=== PATIENT | female | born 1975 | race Caucasian/White ===

== ENCOUNTER 2016-10-31 01:56 | Emergency (ER) | payer BC ==
--- NOTE | 2016-10-31 08:50 | DIAGNOSTIC IMAGING REPORT ---
PROCEDURE: US COMPLETE PELVIC W/TRANSVAG INDICATION: Pelvic pain TECHNIQUE: Transabdominal and endovaginal tavera scale and color Doppler sonographic images of the female pelvis were obtained. COMPARISON: CT abdomen/pelvis 10/31/2016 FINDINGS: Study limited by patient's body habitus and discomfort during examination. TRANSABDOMINAL SCANS: Uterus not well visualized. Normal kidneys. TRANSVAGINAL SCANS: The uterus measures 9.9 x 6 x 6 cm. 1.7 cm right mid posterior fibroid. There is an 8.6 x 7.5 x 6.2 cm complex left adnexal mass cephalad to the uterus with some wall thickening posteriorly. There is some vascular flow present. There is mild echogenic free fluid present. Right ovary not visualized. IMPRESSION: 1. 8.6 cm complex left adnexal mass cephalad to the uterus with mild echogenic free fluid. This suggests hemorrhagic cyst. Tubal ovarian abscess is not completely excluded. Correlate clinically 2. Fibroid 3. Results discussed with Dr. Spencer
--- NOTE | 2016-10-31 08:51 | DIAGNOSTIC IMAGING REPORT ---
PROCEDURE: CT ABD/PELVIS WITH CONTRAST CLINICAL INDICATION: ABDOMINAL PAIN, initial encounter TECHNIQUE: 125 ml of Isovue 300 were injected intravenously and axial images were obtained of the entire abdomen and pelvis with sagittal and coronal reformations. COMPARISON: None. FINDINGS: ABDOMEN: Lung bases are clear. Normal heart size. Cholecystectomy. Liver, pancreas, spleen, adrenal glands and kidneys are normal. Minor atherosclerosis. Nonspecific bowel gas pattern. PELVIS: 6 cm cystic left adnexal mass with wall enhancement and mild free fluid. There is a 2.7 cm right ovarian cyst. 2 cm exophytic left lateral uterine fibroid. Bladder is unremarkable. Appendix not visualized but no evidence of acute appendicitis. No suspicious osseous lesions. IMPRESSION: 1. 6 cm cystic left ovarian mass with mild free fluid. This may represent a hemorrhagic cyst or tubo-ovarian abscess. 2. 2.7 cm right ovarian cyst 3. Small amount of free fluid 4. Suspect 2 cm left lateral exophytic fibroid 5. Cholecystectomy 6. Preliminary results submitted by Dr. Maddox, [facility] radiology. All CT scans at this facility use dose modulation, iterative reconstruction, and/or weight-based dosing when appropriate to reduce radiation dose to as low as reasonably achievable.
--- NOTE | 2016-10-31 09:23 | ED NURSING NOTES ---
Clinical Report - Nurses Located Within [facility] [address] [place] [address] 10/31/2016 1:57 [id number] TRI[facility] Triage time 0205. Acuity: LEVEL 3. [place] COMA SCORE: [place] Coma Scale: 15- eyes open spontaneously (4); best verbal response- oriented x 4 (5); best motor response- obeys commands (6). --02:12 Janina Enriquez R.N. 02:05 10/31/16. BP: 168/106. HR: 118. RR: 20 (unlabored). O2 saturation: 99% on room air. Temp: 98.8 F (oral). Pain level now: 08/03. --02:12 Janina Enriquez R.N. Alert. SEPSIS SCREEN: Sepsis Screen. Negative (no infection suspected/documented). --03:12 Nicholas Ritchie R.N. 03:08 10/31/16. BP: 154/95. HR: 110. RR: 22. O2 saturation: 100% on room air. Temp: 98.7 F. Pain level now: 08/03. --03:12 Nicholas Ritchie R.N. Triage time late entry -0205. Chief Complaint: ABDOMINAL PAIN. late entry -02:05. --09:38 Morteza Thomas R.N. Weight: 99.7 kg stated. Height/Length: 63 inches Per Patient. BMI: 38.9. --02:05 Janina Enriquez R.N. Medications TraMADol HCl Oral. Xanax Oral. --02:09 Janina Enriquez R.N. TiZANidine HCl Oral (Tablet 2 mg) 2 tablets, 3x a day. --02:09 Janina Enriquez R.N. Medication/allergy information source: the patient. --02:12 Janina Enriquez R.N. Allergies Erythromycin. Penicillin. --02:09 Janina Enriquez R.N. History Arrived by private vehicle. Historian: patient. Accompanied by family. ( pt c/o abdominal pain, nausea and vomited x 1 since yesterday morning shortly after her period ended.). This started yesterday. Treatment DEVELOPMENT DISABILITY SPECIALIST: Took ibuprofen. PAST MEDICAL HX: Last normal menstrual period- Oct 26, 2016. SOCIAL HX: Light tobacco smoker (cigarette)- less than 1/2 a pack per day. No alcohol use or drug use. ABUSE ASSESSMENT: No report of abuse. FALL RISK ASSESSMENT: Fall risk assessment completed. No fall risk identified. NUTRITIONAL RISK ASSESSMENT: The nutritional risk assessment revealed no deficiencies. FUNCTIONAL ASSESSMENT: Functional assessment: no impairments noted. LEARNING NEEDS ASSESSMENT: The learning needs assessment revealed no barriers. SKIN INTEGRITY ASSESSMENT: Skin integrity risk assessment completed. No skin integrity risk identified. --02:12 Janina Enriquez R.N. Primary physician ([place]). --02:12 Janina Enriquez R.N. PROBLEMS: Fibromyalgia. Hypertension. Anxiety Reaction. --02:10 Janina Enriquez R.N. ADDITIONAL SURGERIES: Cholecystectomy. Tonsillectomy. --02:10 Janina Enriquez R.N. Interventions ID band on patient. To waiting room. --02:12 Janina Enriquez R.N. PHYSICAL ASSESSMENT 03:12. To room via wheelchair. Patient gowned. GENERAL / NEURO / PSYCH: Alert. Oriented X 4. HEENT: Mucous membranes are pink. RESPIRATORY: Respirations not labored. SKIN: Skin is warm and dry. --03:12 Nicholas Ritchie R.N. NURSING PROGRESS NOTES 02:59 Patient in restroom collecting urine sample. --03:00 Nicholas Ritchie R.N. 03:03. Patient ID band checked for patient name and birthdate: patient confirmed. Clean catch urine collected with return of yellow-colored cloudy urine; sample sent to lab for urinalysis and HCG. Specimen labeled in the presence of the patient. --03:08 Nicholas Ritchie R.N. 03:05. Head of bed elevated. Two patient identifiers checked. Call light placed in reach. Bed placed in lowest position. Brakes of bed on. Patient ready for evaluation- chart flagged. --03:08 Nicholas Ritchie R.N. 03:19 10/31/2016 Site #1 started via IV in the right antecubital space with an 20g angiocath, with aseptic technique and good blood return; one attempt. Blood drawn: rainbow set. Labeled in the presence of the patient and sent to the lab. Saline lock flushed with 10 mL saline. --03:26 Nicholas Ritchie R.N. 03:30 10/31/2016 Zofran (Ondansetron HCl) IVP 4 mg given over 2 minute(s) via site #1. Allergies verified and confirmed 5 rights. IV patency established. IV site checked: no pain, redness, or swelling. IV flushed thoroughly pre- and post-medication administration. --03:50 Nicholas Ritchie R.N. 04:00 10/31/2016 Dilaudid (HYDROmorphone HCl PF) IVP 1 mg given over 2 minute(s) via site #1. Allergies verified, confirmed 5 rights and sedative warning given to the patient and patient's family. IV patency established. IV site checked: no pain, redness, or swelling. IV flushed thoroughly pre- and post-medication administration. --04:02 Nicholas Ritchie R.N. 04:02 10/31/16. BP: 148/86. HR: 110. RR: 18. O2 saturation: 96% on room air. --04:03 Nicholas Ritchie R.N. 05:17. Patient transported to [place] by stretcher with tech. --05:22 Nicholas Ritchie R.N. 05:25. Patient returned from CT by stretcher with tech. --05:29 Nicholas Ritchie R.N. 06:01 10/31/2016 Zofran (Ondansetron HCl) IVP 4 mg given over 2 minute(s) via site #1. Allergies verified and confirmed 5 rights. IV patency established. IV site checked: no pain, redness, or swelling. IV flushed thoroughly pre- and post-medication administration. --06:05 Nicholas Ritchie R.N. 06:04 10/31/2016 Dilaudid (HYDROmorphone HCl PF) IVP 1 mg given over 2 minute(s) via site #1. Allergies verified, confirmed 5 rights and sedative warning given to the patient and patient's family. IV patency established. IV site checked: no pain, redness, or swelling. IV flushed thoroughly pre- and post-medication administration. --06:06 Nicholas Ritchie R.N. 07:13 10/31/16. BP: 116/74. HR: 104. RR: 16. O2 saturation: 95%. Pain level now: 03/03. --07:14 Nicholas Ritchie R.N. The patient is calm and resting quietly. SKIN: Skin color within normal limits. --07:14 Nicholas Ritchie R.N. 07:15. Care transferred and report given (Morteza DUMAS). --07:15 Nicholas Ritchie R.N. <<STRICKEN ENTRY-- 07:23 10/31/16. Care transferred and report received (from BLANKA Yoder). --07:23 Morteza Thomas R.N. --END STRIKE>> Correction --07:42 Morteza Thomas R.N. late entry -07:15. Care transferred and report received (from Nicholas Salcedo RN). --07:42 Morteza Thomas R.N. 07:30. ( US here at the bedside). --07:41 Morteza Thomas R.N. 08:46 10/31/2016 Dilaudid (HYDROmorphone HCl PF) IVP 1 mg given over 1 minute(s) via site #1. Allergies verified, confirmed 5 rights and sedative warning given to the patient. IV patency established. IV site checked: no pain, redness, or swelling. IV flushed thoroughly pre- and post-medication administration. IVP given by RN. --08:51 Morteza Thomas R.N. 08:48 10/31/2016 Ativan (LORazepam) IVP 0.5 mg given over 1 minute(s) via site #1. Allergies verified, confirmed 5 rights and sedative warning given to the patient. IV patency established. IV site checked: no pain, redness, or swelling. IV flushed thoroughly pre- and post-medication administration. IVP given by RN. --08:52 Morteza Thomas R.N. 08:55 10/31/16. BP: 124/71. HR: 101. RR: 20. O2 saturation: 90% on room air. Pain level now: 07/04. --08:58 Morteza Thomas R.N. 08:58 10/31/16. HR: 98. RR: 20. O2 saturation: 99% on nasal cannula at 2 liters/minute. Pain level now: 06/03. --08:58 Morteza Thomas R.N. 09:00 10/31/2016 Dilaudid IVP Response: no adverse reaction symptoms have improved. --18:45 Morteza Thomas R.N. 09:00 10/31/2016 Ativan IVP Response: no adverse reaction symptoms have improved. --18:46 Morteza Thomas R.N. 09:00 10/31/16. Oxygen administered by nasal cannula at 2 liters. Pulse oximeter and NIBP monitor placed on patient; monitor alarms on. Reassurance given. Call light placed in reach. Side rails up x 2. Bed placed in lowest position. Brakes of bed on. ( Extra pillow provided.). Patient waiting for radiology results. --09:00 Morteza Thomas R.N. DISPOSITION / DISCHARGE 09:30 10/31/2016 Site #1 removed upon discharge. Bandage applied. --09:30 Morteza Thomas R.N. 09:36 10/31/16. Departure time: 0930. Condition at departure: unchanged and stable. No learning barriers present. Discharge instructions provided and reviewed with the patient and spouse. Reviewed warnings. Reviewed medication(s). Reviewed referrals. Work note given. Follow up contact number Gail Gerber DO [phone]. Patient and spouse verbalized understanding. Written instructions provided in Kyrgyz. The patient was discharged by the physician. She was discharged home and accompanied by spouse. She left the Emergency Department ambulatory and via private vehicle. Spouse driving. --09:36 Morteza Thomas R.N. 09:15 10/31/16. BP: 106/68. HR: 98. RR: 20. O2 saturation: 98% on room air. Temp: 98.7 F. Pain level now: 04/03. --09:36 Morteza Thomas R.N. Locked/Released at 10/31/2016 18:47 by Morteza Thomas R.N.
--- NOTE | 2016-10-31 09:23 | ED ORDER SUMMARY ---
..... Patient: DONALD LANDON OrderSheet [facility] VisitID: [id number] [place] [address] 41y, F Registration Date/Time: 10/31/2016 ORDER SHEET Weight: 99.7 kg (stated) Allergies: Erythromycin, Penicillin GENERAL ORDERS: CBC w Diff Urgent (03:25 10/31/2016 JQuivey R.N. per protocol) (Ack 3:27 CHagerty ER Yarn Texturing Machine Operator) (3:27 CHagerty ER Yarn Texturing Machine Operator) CMP Urgent (03:25 10/31/2016 JQuivey R.N. per protocol) (Ack 3:27 CHagerty ER Yarn Texturing Machine Operator) (3:27 CHagerty ER Yarn Texturing Machine Operator) Amylase Urgent (03:10/31/2016 JQuivey R.N. per protocol) (Ack 3:27 CHagerty ER Yarn Texturing Machine Operator) (3:27 CHagerty ER Yarn Texturing Machine Operator) Lipase Urgent (03:25 10/31/2016 JQuivey R.N. per protocol) (Ack 3:27 CHagerty ER Yarn Texturing Machine Operator) (3:27 CHagerty ER Yarn Texturing Machine Operator) Urine Urgent (03:25 10/31/2016 JQuivey R.N. per protocol) (Ack 3:27 CHagerty ER Yarn Texturing Machine Operator) (3:27 CHagerty ER Yarn Texturing Machine Operator) UA-Culture if indicated Urgent (03:25 10/31/2016 JQuivey R.N. per protocol) (Ack 3:27 CHagerty ER Yarn Texturing Machine Operator) (3:27 CHagerty ER Yarn Texturing Machine Operator) Urine Drug Screen Urgent (03:28 10/31/2016 Arnie NEVAREZ) (Ack 3:44 CHagerty ER Yarn Texturing Machine Operator) (3:51 CHagerty ER Yarn Texturing Machine Operator) CT Abd/Pel w Cont (No) (N/A) Urgent (03:34 10/31/2016 Arnie NEVAREZ) (Ack 3:44 CHagerty ER Yarn Texturing Machine Operator) (5:49 CHagerty ER Yarn Texturing Machine Operator) US Pelvic Complete w Transvag Urgent (06:38 10/31/2016 Arnie NEVAREZ) (Ack 6:42 CHagerty ER Yarn Texturing Machine Operator) (18:44 JSimbeck R.N.) MEDICATION ORDERS: IV FLUIDS: IV Saline Lock (03:25 10/31/2016 JQuivey R.N. per protocol) (3:26 JQuivey R.N.) Dilaudid IV 1 mg (NOW) (03:33 10/31/2016 Arnie NEVAREZ) (Ack 3:50 JQuivey R.N.) (4:02 JQuivey R.N.) Zofran IV 4 mg (NOW) (03:34 10/31/2016 Arnie NEVAREZ) (3:50 JQuivey R.N.) Zofran IV 4 mg (NOW) (06:00 10/31/2016 JQuivey R.N. verbal order read back to Arnie NEVAREZ) (Ack 6:00 JQuivey R.N.) (6:05 JQuivey R.N.) Dilaudid IV 1 mg (NOW) (06:00 10/31/2016 LilyQuivey R.N. verbal order read back to Arnie NEVAREZ) (Ack 6:00 JQuivey R.N.) (6:06 JQuivey R.N.) Dilaudid IV 1 mg (NOW) (08:14 10/31/2016 Arnie NEVAREZ) (8:51 GORDONimbeck R.N.) Ativan IV 0.5 mg (NOW) (08:14 10/31/2016 Arnie NEVAREZ) (8:52 JSimbeck R.N.) ORDER SHEET NOTES: [Electronically signed by Morteza Thomas R.N. (18:47 10/31/2016)] [Electronically signed by Shayne Spencer MD (22:39 11/01/2016)] [Electronically locked/signed by Morteza Thomas R.N. (18:47 10/31/2016)]
--- NOTE | 2016-10-31 09:23 | ED CLINICAL REPORT ---
Clinical Report - Physicians/Mid Levels [facility] [address] [place] [address] 10/31/2016 1:57 Patient: DONALD LANDON Time Seen: 03:28 Oct 31 2016. Arrived- By private vehicle. Historian- patient. CPT: ER phys charges level 4 (#[id number]). HISTORY OF PRESENT ILLNESS Chief Complaint: ABDOMINAL PAIN. At its maximum, severity described as severe. When seen in the E.D., severity described as severe. Modifying factors- worsened by movement. Not relieved by anything. It is described as "pain". It is described as located in the right abdomen, right pelvis and left abdomen, in the lower abdomen and in the pelvic area. This started yesterday pt c/o abdominal pain, nausea and vomited x 1 since yesterday morning shortly after her period ended.). and is still present. It was abrupt in onset and has been constant. The patient has had nausea and vomiting. No diarrhea. Similar symptoms previously: None. Recent medical care: Not recently seen/assessed. REVIEW OF SYSTEMS No constipation, black stools, hematemesis, difficulty with urination or pain with urination. No urinary frequency, bloody stools, fever, sore throat or chest pain. No difficulty breathing, cough, joint pain, skin rash or back pain. All systems otherwise negative, except as recorded above. PAST HISTORY Fibromyalgia. Hypertension. Anxiety Reaction. --02:10 Janina Enriquez R.N. ADDITIONAL SURGERIES: Cholecystectomy. Tonsillectomy. Uterine ablation. Medications: TiZANidine HCl Oral (Tablet 2 mg) 2 tablets, 3x a day. TraMADol HCl Oral. Xanax Oral. Allergies: Erythromycin. Penicillin. SOCIAL HISTORY Heavy tobacco smoker (cigarette)- less than 1 pack per day. No alcohol use or drug use. ADDITIONAL NOTES The nursing notes have been reviewed. PHYSICAL EXAM Vital Signs: 10/31/2016 02:05 BP: 168/106. HR: 118. RR: 20. O2 saturation: 99%. Temp: 98.8 F. Pain level now: 08/03. Appearance: Alert. Oriented X3. Patient in moderate distress. Eyes: Eyes normal inspection. ENT: Pharynx normal. Neck: Normal inspection. CVS: Normal heart rate and rhythm. Heart sounds normal. Pulses normal. Respiratory: No respiratory distress. Breath sounds normal. Chest nontender. Abdomen: Soft. Moderate tenderness in the right lower quadrant, suprapubic area and lower abdomen. Bowel sounds normal. Back: Normal inspection. No CVA tenderness. Skin: Skin warm. Normal skin color. No rash. Extremities: Extremities exhibit normal ROM. No calf tenderness. No lower extremity edema. Neuro: Oriented X 3. No motor deficit. No sensory deficit. Reflexes normal. LABS, X-RAYS, AND EKG Abdominal CT: A cyst in the right ovary is present. There is free fluid- hemorrhagic. Abdominal CT performed with IV contrast. The study was independently viewed by me, interpreted by the radiologist and discussed with the radiologist. Pelvic Sonogram: 8 cm ruptured , hemorrhagic cyst. Good blood flow, Less likely abscess. The study was independently viewed by me, interpreted by the radiologist and discussed with the radiologist. Laboratory Tests: UA-Culture if indicated: (GUS: 10/31/2016 03:03) ( MsVertex Energycvd 10/31/2016 03:56) Final results Test Result Flag Units (Reference) URINE COLOR YELLOW URINE APPEARANCE CLEAR URINE GLUCOSE NEGATIVE (NEGATIVE) URINE BILIRUBIN NEGATIVE (NEGATIVE) URINE KETONE TRACE (NEGATIVE) URINE SPECIFIC GRAVITY 1.020 (1.010-1.030) URINE PH 6.5 (5.0-8.0) URINE PROTEIN 1+ (NEGATIVE) URINE UROBILINOGEN 1.0 EU/dL (0.2-1.0) URINE NITRITE POSITIVE (NEGATIVE) URINE BLOOD 3+ (NEGATIVE) URINE LEUK ESTERASE NEGATIVE (NEGATIVE) URINE RBC 1-3 rbc/hpf (0-1) URINE WBC 0-1 wbc/hpf (0-1) URINE EPITHELIAL CELLS 1-3 EPI/hpf (0-5) URINE BACTERIA MANY (4+) (NONE SEEN) URINE COMMENT CULTURE INDICATED URINE CULTURES ARE SET-UP BASED ON THE FOLLOWING CRITERIA:POSITIVE NITRITEPOSITIVE LEUKOCYTE ESTERASEGREATER THAN 10 WHITE BLOOD CELLSMODERATE (2+) OR GREATER BACTERIA Urine: (GUS: 10/31/2016 03:03) ( MsgRcvd 10/31/2016 03:38) Final results Test Result Flag Units (Reference) URINE NEGATIVE CBC w Diff: (GUS: 10/31/2016 03:18) ( MsgRcvd 10/31/2016 03:36) Final results Test Result Flag Units (Reference) WHITE BLOOD COUNT 24.2 H K/uL (4.5-11.5) RED BLOOD COUNT 4.70 M/uL (4.00-5.20) HEMOGLOBIN 14.3 gm/dL (12.0-16.0) HEMATOCRIT 43.3 % (36.0-46.0) MEAN CELL VOLUME 92 fL (80-100) MEAN CORPUSCULAR HGB 30 pg (26-34) MEAN CORPUSCULAR HGB CONC 33 g/dL (31-37) RED CELL DISTRIBUTION WIDTH 13.5 % (11.6-14.8) PLATELET COUNT 344 K/uL (150-400) NEUTROPHIL % 93.0 H % (50-75) LYMPH % 4.7 L % (25-40) MONO % 2.3 L % (3-14) EOSINOPHIL % 0 % (0-4) BASOPHIL % 0 % (0-2) Urine Drug Screen: (GUS: 10/31/2016 03:03) ( MsgRcvd 10/31/2016 03:46) Final results Test Result Flag Units (Reference) AMPHETAMINE/METHAMPHETAMINE NEGATIVE (NEGATIVE) BARBITURATE NEGATIVE (NEGATIVE) BENZODIAZEPINE POSITIVE H (NEGATIVE) CANNABINOID POSITIVE H (NEGATIVE) COCAINE NEGATIVE (NEGATIVE) ECSTASY NEGATIVE (NEGATIVE) METHADONE NEGATIVE (NEGATIVE) OPIATE POSITIVE H (NEGATIVE) The urine drug screen is a qualitative screening test fordrug overdose and abuse. All screen results should beconsidered as presumptive.Drugs screened for are as follows:BenzodiazepinesCocaineAmphetamines/MetamphetaminesTHC (Tetrahydrocannabinol)OpiatesBarbituratesEcstasyMethadonePositive results are unconfirmed. For confirmation, notifythe lab for the specimen to be sent to the reference lab.All confirmations must be performed by a differentmethodology.The ingestion of natural herbal and plant productscontaining Ephedra/Ephedra metabolites can produce in urineone or more substances capable of cross reacting withamphetamine/methamphetamine immunoassays. These testsprovide a preliminary result only. A more specificalternative chemical method must be used to obtain aconfirmed analytical result. CMP: (GUS: 10/31/2016 03:18) ( MsgRcvd 10/31/2016 03:42) Final results Test Result Flag Units (Reference) GLUCOSE 112 H mg/dL (70-110) BUN 14 mg/dL (7-18) CREATININE 0.7 mg/dL (0.6-1.3) Estimated GFR >60 mL/min Estimated GFR- >60 mL/min Note: Persistent reduction over 3 months in eGFR<60 mL/min/1.73 m2 defines CKD. Patients with eGFR values>=60 mL/min/1.73 m2 may also have CKD if evidence ofpersistent proteinuria. Additional information may be foundat www.kidney.org. SODIUM 134 L mmol/L (136-145) POTASSIUM 3.6 mmol/L (3.5-5.1) CHLORIDE 100 mmol/L (98-107) CARBON DIOXIDE 27 mmol/L (21-32) CALCIUM 8.5 mg/dL (8.5-10.1) TOTAL PROTEIN 7.5 g/dL (6.4-8.2) ALBUMIN 3.7 g/dL (3.3-5.0) BILIRUBIN, TOTAL 0.7 mg/dL (0.0-1.0) ALKALINE PHOSPHATASE 95 U/L (46-116) AST (SGOT) 54 H U/L (15-37) ALT (SGPT) 41 U/L (12-78) LIPASE 95 U/L (73-393) AMYLASE 31 U/L (25-115) . PROGRESS AND PROCEDURES Course of Care: Heplock Dilaudid 1 mg IV times 3 Zofran 4 mg IV times 2 Ativan 0.5mg IV Patient is stable. Symptoms much better. Discussed case with on-call health care provider, (Buzz , who will get her in on Wednesday for re-check.). Reviewed test results. Agreed upon treatment plan. Health care provider will see patient in office. Patient/family counseled. Disposition: Discharged. CLINICAL IMPRESSION Acute right lower quadrant abdominal pain. Single ruptured right ovarian cyst (Hemorrhagic). No simple ovarian cyst, follicular ovarian cyst, corpus luteum ovarian cyst, torsion of ovary or polycystic ovarian disease. Bacteruria. INSTRUCTIONS No strenuous activity. Rest. Do not work for two days until released. Drink plenty of fluids. Warnings: Further evaluation is necessary. GENERAL WARNINGS: Return or contact your physician immediately if your condition worsens or changes unexpectedly, if not improving as expected, or if other problems arise. Your Current Medications: CONTINUE TAKING THE FOLLOWING MEDICATIONS: TiZANidine HCl Oral : Tablet 2 mg, 2 tablets 3x a day. TraMADol HCl Oral. Xanax Oral. Prescription Medications: Zofran (orally disintegrating tablets) 4 mg: take 1 orally every 4 hours as needed for nausea. Dispense fifteen (15). No refill. Substitution is permissible. Macrobid 100 mg: Take 1 capsule orally every 12 hours for 7 days. No refills. Substitution is permissible. Oxycodone/APAP 5 mg/325 mg: take 1-2 tablets orally every 4 hours as needed for pain. Dispense twenty (20). No refill. Understanding of the discharge instructions verbalized by patient. Discharge instructions reviewed with and understanding was verbalized by spouse. Follow-up with: Gail Gerber DO, bioassayist, , [facility], [address] [place] [address], Critical access hospital Follow up Wednesday in two days. Call for the next available appointment. (Electronically signed by Shayne Spencer MD 11/01/2016 22:39)
--- NOTE | 2016-10-31 09:23 | ED CLINICAL REPORT ---
Clinical Report - Physicians/Mid Levels [facility] [address] [place] [address] 10/31/2016 1:57 Patient: DONALD LANDON Time Seen: 03:28 Oct 31 2016. Arrived- By private vehicle. Historian- patient. CPT: ER phys charges level 4 (#[id number]). HISTORY OF PRESENT ILLNESS Chief Complaint: ABDOMINAL PAIN. At its maximum, severity described as severe. When seen in the E.D., severity described as severe. Modifying factors- worsened by movement. Not relieved by anything. It is described as "pain". It is described as located in the right abdomen, right pelvis and left abdomen, in the lower abdomen and in the pelvic area. This started yesterday pt c/o abdominal pain, nausea and vomited x 1 since yesterday morning shortly after her period ended.). and is still present. It was abrupt in onset and has been constant. The patient has had nausea and vomiting. No diarrhea. Similar symptoms previously: None. Recent medical care: Not recently seen/assessed. REVIEW OF SYSTEMS No constipation, black stools, hematemesis, difficulty with urination or pain with urination. No urinary frequency, bloody stools, fever, sore throat or chest pain. No difficulty breathing, cough, joint pain, skin rash or back pain. All systems otherwise negative, except as recorded above. PAST HISTORY Fibromyalgia. Hypertension. Anxiety Reaction. --02:10 aJnina Enriquez R.N. ADDITIONAL SURGERIES: Cholecystectomy. Tonsillectomy. Uterine ablation. Medications: TiZANidine HCl Oral (Tablet 2 mg) 2 tablets, 3x a day. TraMADol HCl Oral. Xanax Oral. Allergies: Erythromycin. Penicillin. SOCIAL HISTORY Heavy tobacco smoker (cigarette)- less than 1 pack per day. No alcohol use or drug use. ADDITIONAL NOTES The nursing notes have been reviewed. PHYSICAL EXAM Vital Signs: 10/31/2016 02:05 BP: 168/106. HR: 118. RR: 20. O2 saturation: 99%. Temp: 98.8 F. Pain level now: 08/03. Appearance: Alert. Oriented X3. Patient in moderate distress. Eyes: Eyes normal inspection. ENT: Pharynx normal. Neck: Normal inspection. CVS: Normal heart rate and rhythm. Heart sounds normal. Pulses normal. Respiratory: No respiratory distress. Breath sounds normal. Chest nontender. Abdomen: Soft. Moderate tenderness in the right lower quadrant, suprapubic area and lower abdomen. Bowel sounds normal. Back: Normal inspection. No CVA tenderness. Skin: Skin warm. Normal skin color. No rash. Extremities: Extremities exhibit normal ROM. No calf tenderness. No lower extremity edema. Neuro: Oriented X 3. No motor deficit. No sensory deficit. Reflexes normal. LABS, X-RAYS, AND EKG Abdominal CT: A cyst in the right ovary is present. There is free fluid- hemorrhagic. Abdominal CT performed with IV contrast. The study was independently viewed by me, interpreted by the radiologist and discussed with the radiologist. Pelvic Sonogram: 8 cm ruptured , hemorrhagic cyst. Good blood flow, Less likely abscess. The study was independently viewed by me, interpreted by the radiologist and discussed with the radiologist. Laboratory Tests: UA-Culture if indicated: (GUS: 10/31/2016 03:03) ( MsAmeriWorkscvd 10/31/2016 03:56) Final results Test Result Flag Units (Reference) URINE COLOR YELLOW URINE APPEARANCE CLEAR URINE GLUCOSE NEGATIVE (NEGATIVE) URINE BILIRUBIN NEGATIVE (NEGATIVE) URINE KETONE TRACE (NEGATIVE) URINE SPECIFIC GRAVITY 1.020 (1.010-1.030) URINE PH 6.5 (5.0-8.0) URINE PROTEIN 1+ (NEGATIVE) URINE UROBILINOGEN 1.0 EU/dL (0.2-1.0) URINE NITRITE POSITIVE (NEGATIVE) URINE BLOOD 3+ (NEGATIVE) URINE LEUK ESTERASE NEGATIVE (NEGATIVE) URINE RBC 1-3 rbc/hpf (0-1) URINE WBC 0-1 wbc/hpf (0-1) URINE EPITHELIAL CELLS 1-3 EPI/hpf (0-5) URINE BACTERIA MANY (4+) (NONE SEEN) URINE COMMENT CULTURE INDICATED URINE CULTURES ARE SET-UP BASED ON THE FOLLOWING CRITERIA:POSITIVE NITRITEPOSITIVE LEUKOCYTE ESTERASEGREATER THAN 10 WHITE BLOOD CELLSMODERATE (2+) OR GREATER BACTERIA Urine: (GUS: 10/31/2016 03:03) ( MsgRcvd 10/31/2016 03:38) Final results Test Result Flag Units (Reference) URINE NEGATIVE CBC w Diff: (GUS: 10/31/2016 03:18) ( MsgRcvd 10/31/2016 03:36) Final results Test Result Flag Units (Reference) WHITE BLOOD COUNT 24.2 H K/uL (4.5-11.5) RED BLOOD COUNT 4.70 M/uL (4.00-5.20) HEMOGLOBIN 14.3 gm/dL (12.0-16.0) HEMATOCRIT 43.3 % (36.0-46.0) MEAN CELL VOLUME 92 fL (80-100) MEAN CORPUSCULAR HGB 30 pg (26-34) MEAN CORPUSCULAR HGB CONC 33 g/dL (31-37) RED CELL DISTRIBUTION WIDTH 13.5 % (11.6-14.8) PLATELET COUNT 344 K/uL (150-400) NEUTROPHIL % 93.0 H % (50-75) LYMPH % 4.7 L % (25-40) MONO % 2.3 L % (3-14) EOSINOPHIL % 0 % (0-4) BASOPHIL % 0 % (0-2) Urine Drug Screen: (GUS: 10/31/2016 03:03) ( MsgRcvd 10/31/2016 03:46) Final results Test Result Flag Units (Reference) AMPHETAMINE/METHAMPHETAMINE NEGATIVE (NEGATIVE) BARBITURATE NEGATIVE (NEGATIVE) BENZODIAZEPINE POSITIVE H (NEGATIVE) CANNABINOID POSITIVE H (NEGATIVE) COCAINE NEGATIVE (NEGATIVE) ECSTASY NEGATIVE (NEGATIVE) METHADONE NEGATIVE (NEGATIVE) OPIATE POSITIVE H (NEGATIVE) The urine drug screen is a qualitative screening test fordrug overdose and abuse. All screen results should beconsidered as presumptive.Drugs screened for are as follows:BenzodiazepinesCocaineAmphetamines/MetamphetaminesTHC (Tetrahydrocannabinol)OpiatesBarbituratesEcstasyMethadonePositive results are unconfirmed. For confirmation, notifythe lab for the specimen to be sent to the reference lab.All confirmations must be performed by a differentmethodology.The ingestion of natural herbal and plant productscontaining Ephedra/Ephedra metabolites can produce in urineone or more substances capable of cross reacting withamphetamine/methamphetamine immunoassays. These testsprovide a preliminary result only. A more specificalternative chemical method must be used to obtain aconfirmed analytical result. CMP: (GUS: 10/31/2016 03:18) ( MsgRcvd 10/31/2016 03:42) Final results Test Result Flag Units (Reference) GLUCOSE 112 H mg/dL (70-110) BUN 14 mg/dL (7-18) CREATININE 0.7 mg/dL (0.6-1.3) Estimated GFR >60 mL/min Estimated GFR- >60 mL/min Note: Persistent reduction over 3 months in eGFR<60 mL/min/1.73 m2 defines CKD. Patients with eGFR values>=60 mL/min/1.73 m2 may also have CKD if evidence ofpersistent proteinuria. Additional information may be foundat www.kidney.org. SODIUM 134 L mmol/L (136-145) POTASSIUM 3.6 mmol/L (3.5-5.1) CHLORIDE 100 mmol/L (98-107) CARBON DIOXIDE 27 mmol/L (21-32) CALCIUM 8.5 mg/dL (8.5-10.1) TOTAL PROTEIN 7.5 g/dL (6.4-8.2) ALBUMIN 3.7 g/dL (3.3-5.0) BILIRUBIN, TOTAL 0.7 mg/dL (0.0-1.0) ALKALINE PHOSPHATASE 95 U/L (46-116) AST (SGOT) 54 H U/L (15-37) ALT (SGPT) 41 U/L (12-78) LIPASE 95 U/L (73-393) AMYLASE 31 U/L (25-115) . PROGRESS AND PROCEDURES Course of Care: Heplock Dilaudid 1 mg IV times 3 Zofran 4 mg IV times 2 Ativan 0.5mg IV Patient is stable. Symptoms much better. Discussed case with on-call health care provider, (Buzz , who will get her in on Wednesday for re-check.). Reviewed test results. Agreed upon treatment plan. Health care provider will see patient in office. Patient/family counseled. Disposition: Discharged. CLINICAL IMPRESSION Acute right lower quadrant abdominal pain. Single ruptured right ovarian cyst (Hemorrhagic). No simple ovarian cyst, follicular ovarian cyst, corpus luteum ovarian cyst, torsion of ovary or polycystic ovarian disease. Bacteruria. INSTRUCTIONS No strenuous activity. Rest. Do not work for two days until released. Drink plenty of fluids. Warnings: Further evaluation is necessary. GENERAL WARNINGS: Return or contact your physician immediately if your condition worsens or changes unexpectedly, if not improving as expected, or if other problems arise. Your Current Medications: CONTINUE TAKING THE FOLLOWING MEDICATIONS: TiZANidine HCl Oral : Tablet 2 mg, 2 tablets 3x a day. TraMADol HCl Oral. Xanax Oral. Prescription Medications: Zofran (orally disintegrating tablets) 4 mg: take 1 orally every 4 hours as needed for nausea. Dispense fifteen (15). No refill. Substitution is permissible. Macrobid 100 mg: Take 1 capsule orally every 12 hours for 7 days. No refills. Substitution is permissible. Oxycodone/APAP 5 mg/325 mg: take 1-2 tablets orally every 4 hours as needed for pain. Dispense twenty (20). No refill. Understanding of the discharge instructions verbalized by patient. Discharge instructions reviewed with and understanding was verbalized by spouse. Follow-up with: Gail Gerber DO, machine repairer maintenance, , [facility], [address] [place] [address], [facility] Follow up Wednesday in two days. Call for the next available appointment. (Electronically signed by Shayne Spencer MD 11/01/2016 22:39)
--- NOTE | 2016-10-31 09:23 | ED ORDER SUMMARY ---
..... Patient: DONALD LANDON OrderSheet [facility] VisitID: [id number] [place] [address] 41y, F Registration Date/Time: 10/31/2016 ORDER SHEET Weight: 99.7 kg (stated) Allergies: Erythromycin, Penicillin GENERAL ORDERS: CBC w Diff Urgent (03:25 10/31/2016 JQuivey R.N. per protocol) (Ack 3:27 CHagerty ER [employer] Instrument Repairer) (3:27 CHagerty ER [employer] Instrument Repairer) CMP Urgent (03:25 10/31/2016 JQuivey R.N. per protocol) (Ack 3:27 CHagerty ER [employer] Instrument Repairer) (3:27 CHagerty ER [employer] Instrument Repairer) Amylase Urgent (03:10/31/2016 JQuivey R.N. per protocol) (Ack 3:27 CHagerty ER [employer] Instrument Repairer) (3:27 CHagerty ER [employer] Instrument Repairer) Lipase Urgent (03:25 10/31/2016 JQuivey R.N. per protocol) (Ack 3:27 CHagerty ER [employer] Instrument Repairer) (3:27 CHagerty ER [employer] Instrument Repairer) Urine Urgent (03:25 10/31/2016 JQuivey R.N. per protocol) (Ack 3:27 CHagerty ER [employer] Instrument Repairer) (3:27 CHagerty ER [employer] Instrument Repairer) UA-Culture if indicated Urgent (03:25 10/31/2016 JQuivey R.N. per protocol) (Ack 3:27 CHagerty ER [employer] Instrument Repairer) (3:27 CHagerty ER [employer] Instrument Repairer) Urine Drug Screen Urgent (03:28 10/31/2016 Arnie NEVAREZ) (Ack 3:44 CHagerty ER [employer] Instrument Repairer) (3:51 CHagerty ER [employer] Instrument Repairer) CT Abd/Pel w Cont (No) (N/A) Urgent (03:34 10/31/2016 Arnie NEVAREZ) (Ack 3:44 CHagerty ER [employer] Instrument Repairer) (5:49 CHagerty ER [employer] Instrument Repairer) US Pelvic Complete w Transvag Urgent (06:38 10/31/2016 Arnie NEVAREZ) (Ack 6:42 CHagerty ER [employer] Instrument Repairer) (18:44 JSimbeck R.N.) MEDICATION ORDERS: IV FLUIDS: IV Saline Lock (03:25 10/31/2016 JQuivey R.N. per protocol) (3:26 JQuivey R.N.) Dilaudid IV 1 mg (NOW) (03:33 10/31/2016 Arnie NEVAREZ) (Ack 3:50 JQuivey R.N.) (4:02 JQuivey R.N.) Zofran IV 4 mg (NOW) (03:34 10/31/2016 Arnie NEVAREZ) (3:50 JQuivey R.N.) Zofran IV 4 mg (NOW) (06:00 10/31/2016 JQuivey R.N. verbal order read back to Arnie NEVAREZ) (Ack 6:00 JQuivey R.N.) (6:05 JQuivey R.N.) Dilaudid IV 1 mg (NOW) (06:00 10/31/2016 LilyQuivey R.N. verbal order read back to Arnie NEVAREZ) (Ack 6:00 JQuivey R.N.) (6:06 JQuivey R.N.) Dilaudid IV 1 mg (NOW) (08:14 10/31/2016 Arnie NEVAREZ) (8:51 GORDONimbeck R.N.) Ativan IV 0.5 mg (NOW) (08:14 10/31/2016 Arnie NEVAREZ) (8:52 JSimbeck R.N.) ORDER SHEET NOTES: [Electronically signed by Morteza Thomas R.N. (18:47 10/31/2016)] [Electronically signed by Shayne Spencer MD (22:39 11/01/2016)] [Electronically locked/signed by Morteza Thomas R.N. (18:47 10/31/2016)]
--- NOTE | 2016-11-01 22:40 | ED MED RECONCILIATION SUMMARY ---
Patient: DONALD LANDON Medication Reconciliation Report [facility] VisitID: [id number] [address] [place] [address] 41y, F Registration Date/Time: 10/31/2016 Weight: 99.7 kg Height/Length: 63 in. BMI: 38.9 ALLERGIES: Erythromycin, Penicillin The patient's Home Medications are listed below: CONTINUE TAKING THE FOLLOWING MEDICATIONS: TiZANidine HCl Oral (2 mg) 2 tablets, 3x a day TraMADol HCl Oral Xanax Oral The source(s) of the original Home Medication information: patient The following Medications were given to the patient in the Emergency Department: Zofran [IVP] IVP 4 mg, administered: 10/31/2016 3:30:00 AM Dilaudid [IVP] IVP 1 mg, administered: 10/31/2016 4:00:00 AM Zofran [IVP] IVP 4 mg, administered: 10/31/2016 6:01:00 AM Dilaudid [IVP] IVP 1 mg, administered: 10/31/2016 6:04:00 AM Dilaudid [IVP] IVP 1 mg, administered: 10/31/2016 8:46:00 AM Ativan [IVP] IVP 0.5 mg, administered: 10/31/2016 8:48:00 AM The following Medications were prescribed to the patient: Zofran (orally disintegrating tablets) 4 mg: take 1 orally every 4 hours as needed for nausea. Dispense fifteen (15). No refill. Substitution is permissible. -- Shayne Spencer MD Macrobid 100 mg: Take 1 capsule orally every 12 hours for 7 days. No refills. Substitution is permissible. -- Shayne Spencer MD Oxycodone/APAP 5 mg/325 mg: take 1-2 tablets orally every 4 hours as needed for pain. Dispense twenty (20). No refill. -- Shayne Spencer MD
--- NOTE | 2016-11-01 22:40 | ED DISCHARGE INSTRUCTIONS ---
Patient: DONALD LANDON General Instructions [facility] VisitID: [id number] [place] [address] 41y, F Registration Date/Time: 10/31/2016 Acute right lower quadrant abdominal pain. Single ruptured right ovarian cyst (Hemorrhagic). No simple ovarian cyst, follicular ovarian cyst, corpus luteum ovarian cyst, torsion of ovary or polycystic ovarian disease. Bacteruria. INSTRUCTIONS No strenuous activity. Rest. Do not work for two days until released. Drink plenty of fluids. Warnings: Further evaluation is necessary. GENERAL WARNINGS: Return or contact your physician immediately if your condition worsens or changes unexpectedly, if not improving as expected, or if other problems arise. Your Current Medications: CONTINUE TAKING THE FOLLOWING MEDICATIONS: TiZANidine HCl Oral : Tablet 2 mg, 2 tablets 3x a day. TraMADol HCl Oral. Xanax Oral. Prescription Medications: Zofran (orally disintegrating tablets) 4 mg: take 1 orally every 4 hours as needed for nausea. Dispense fifteen (15). No refill. Substitution is permissible. Macrobid 100 mg: Take 1 capsule orally every 12 hours for 7 days. No refills. Substitution is permissible. Oxycodone/APAP 5 mg/325 mg: take 1-2 tablets orally every 4 hours as needed for pain. Dispense twenty (20). No refill. Understanding of the discharge instructions verbalized by patient. Discharge instructions reviewed with and understanding was verbalized by spouse. Follow-up with: Gail Gerber DO, tire center manager, , [facility], [address] [place] [address] Follow up Wednesday in two days. Call for the next available appointment. ADDITIONAL INFORMATION Ovarian Cyst The ovary is a small organ located on each side of the uterus. During each menstrual cycle a tiny egg sac forms in the ovary. If the egg is released but does not occur, this sac usually dissolves. Sometimes, the sac may fill with fluid. It then enlarges into a painful cyst. Usually the cyst will rupture or shrink on its own. In either case, the pain gradually goes away over the next 1-3 days. If the cyst does not shrink or rupture, it may cause continued pain. Home Care: Rest in bed and avoid heavy exertion until you are feeling better. Heat to the lower abdomen usually helps (heating pad or hot packs -- a small towel soaked in hot water). You may use acetaminophen (Tylenol) or ibuprofen (Motrin, Advil) to control pain, unless another pain medicine was prescribed. [NOTE: If you have chronic liver or kidney disease or ever had a stomach ulcer or GI bleeding, talk with your doctor before using these medicines.] Follow Up: See your doctor within the next 2-3 days if your pain doesnt improve. Otherwise, follow up with your doctor after your next period or as directed by our staff. Get Prompt Medical Attention if any of the following occur: Pain worsens or fails to respond to the above measures Fever of 100.4F (38C) or higher, or as directed by your healthcare provider Heavy vaginal bleeding (soaking one pad an hour for three hours) You feel weak or dizzy Fainting Passage of a pink or tavera tissue with menstrual bleeding Ondansetron Oral disintegrating tablet What is this medicine? ONDANSETRON (on RICH se elvis) is used to treat nausea and vomiting caused by chemotherapy. It is also used to prevent or treat nausea and vomiting after surgery. How should I use this medicine? These tablets are made to dissolve in the mouth. Do not try to push the tablet through the foil backing. With dry hands, peel away the foil backing and gently remove the tablet. Place the tablet in the mouth and allow it to dissolve, then swallow. While you may take these tablets with water, it is not necessary to do so. Talk to your mine technician regarding the use of this medicine in children. Special care may be needed. What side effects may I notice from receiving this medicine? Side effects that you should report to your doctor or health critical care nurse as soon as possible: allergic reactions like skin rash, itching or hives, swelling of the face, lips, or tongue breathing problems dizziness fast or irregular heartbeat feeling faint or lightheaded, falls fever and chills swelling of the hands and feet tightness in the chest Side effects that usually do not require medical attention (report to your doctor or health critical care nurse if they continue or are bothersome): constipation or diarrhea headache What may interact with this medicine? Do not take this medicine with any of the following medications: -apomorphine -cisapride -dofetilide -dronedarone -pimozide -thioridazine -ziprasidone This medicine may also interact with the following medications: -carbamazepine -phenytoin -rifampicin -tramadol -other medicines that prolong the QT interval (cause an abnormal heart rhythm) What if I miss a dose? If you miss a dose, take it as soon as you can. If it is almost time for your next dose, take only that dose. Do not take double or extra doses. Where should I keep my medicine? Keep out of the reach of children. Store between 2 and 30 degrees C (36 and 86 degrees F). Throw away any unused medicine after the expiration date. What should I tell my health care provider before I take this medicine? They need to know if you have any of these conditions: heart disease history of irregular heartbeat liver disease low levels of magnesium or potassium in the blood an unusual or allergic reaction to ondansetron, granisetron, other medicines, foods, dyes, or preservatives or trying to get breast-feeding What should I watch for while using this medicine? Check with your doctor or health critical care nurse as soon as you can if you have any sign of an allergic reaction. Oxycodone Hydrochloride, Acetaminophen Oral tablet What is this medicine? ACETAMINOPHEN; OXYCODONE (a set a CLYDE raj fen; ox i KOE done) is a pain reliever. It is used to treat mild to moderate pain. How should I use this medicine? Take this medicine by mouth with a full glass of water. Follow the directions on the prescription label. Take your medicine at regular intervals. Do not take your medicine more often than directed. Talk to your mine technician regarding the use of this medicine in children. Special care may be needed. Patients over 65 years old may have a stronger reaction and need a smaller dose. What side effects may I notice from receiving this medicine? Side effects that you should report to your doctor or health critical care nurse as soon as possible: allergic reactions like skin rash, itching or hives, swelling of the face, lips, or tongue breathing difficulties, wheezing confusion light headedness or fainting spells severe stomach pain yellowing of the skin or the whites of the eyes Side effects that usually do not require medical attention (report to your doctor or health critical care nurse if they continue or are bothersome): dizziness drowsiness nausea vomiting What may interact with this medicine? alcohol antihistamines barbiturates like amobarbital, butalbital, butabarbital, methohexital, pentobarbital, phenobarbital, thiopental, and secobarbital benztropine drugs for bladder problems like solifenacin, trospium, oxybutynin, tolterodine, hyoscyamine, and methscopolamine drugs for breathing problems like ipratropium and tiotropium drugs for certain stomach or intestine problems like propantheline, homatropine methylbromide, glycopyrrolate, atropine, belladonna, and dicyclomine general anesthetics like etomidate, ketamine, nitrous oxide, propofol, desflurane, enflurane, halothane, isoflurane, and sevoflurane medicines for depression, anxiety, or psychotic disturbances medicines for sleep muscle relaxants naltrexone narcotic medicines (opiates) for pain phenothiazines like perphenazine, thioridazine, chlorpromazine, mesoridazine, fluphenazine, prochlorperazine, promazine, and trifluoperazine scopolamine tramadol trihexyphenidyl What if I miss a dose? If you miss a dose, take it as soon as you can. If it is almost time for your next dose, take only that dose. Do not take double or extra doses. Where should I keep my medicine? Keep out of the reach of children. This medicine can be abused. Keep your medicine in a safe place to protect it from theft. Do not share this medicine with anyone. Selling or giving away this medicine is dangerous and against the law. Store at room temperature between 20 and 25 degrees C (68 and 77 degrees F). Keep container tightly closed. Protect from light. This medicine may cause accidental overdose and if it is taken by other adults, children, or pets. Flush any unused medicine down the toilet to reduce the chance of harm. Do not use the medicine after the expiration date. What should I tell my health care provider before I take this medicine? They need to know if you have any of these conditions: brain tumor Crohn's disease, inflammatory bowel disease, or ulcerative colitis drink more than 3 alcohol containing drinks per day drug abuse or addiction head injury heart or circulation problems kidney disease or problems going to the bathroom liver disease lung disease, asthma, or breathing problems an unusual or allergic reaction to acetaminophen, oxycodone, other opioid analgesics, other medicines, foods, dyes, or preservatives or trying to get breast-feeding What should I watch for while using this medicine? Tell your doctor or health critical care nurse if your pain does not go away, if it gets worse, or if you have new or a different type of pain. You may develop tolerance to the medicine. Tolerance means that you will need a higher dose of the medication for pain relief. Tolerance is normal and is expected if you take this medicine for a long time. Do not suddenly stop taking your medicine because you may develop a severe reaction. Your body becomes used to the medicine. This does NOT mean you are addicted. Addiction is a behavior related to getting and using a drug for a non-medical reason. If you have pain, you have a medical reason to take pain medicine. Your doctor will tell you how much medicine to take. If your doctor wants you to stop the medicine, the dose will be slowly lowered over time to avoid any side effects. You may get drowsy or dizzy. Do not drive, use machinery, or do anything that needs mental alertness until you know how this medicine affects you. Do not stand or sit up quickly, especially if you are an older patient. This reduces the risk of dizzy or fainting spells. Alcohol may interfere with the effect of this medicine. Avoid alcoholic drinks. There are different types of narcotic medicines (opiates) for pain. If you take more than one type at the same time, you may have more side effects. Give your health care provider a list of all medicines you use. Your doctor will tell you how much medicine to take. Do not take more medicine than directed. Call emergency for help if you have problems breathing. The medicine will cause constipation. Try to have a bowel movement at least every 2 to 3 days. If you do not have a bowel movement for 3 days, call your doctor or health critical care nurse. Do not take Tylenol (acetaminophen) or medicines that have acetaminophen with this medicine. Too much acetaminophen can be very dangerous. Many nonprescription medicines contain acetaminophen. Always read the labels carefully to avoid taking more acetaminophen. You have been given the following additional information: Ovarian Cyst Ondansetron Oral disintegrating tablet Oxycodone Hydrochloride, Acetaminophen Oral tablet No strenuous activity. Rest. Do not work for two days until released. (Electronically signed by Shayne Spencer MD 11/01/2016 22:39)
--- NOTE | 2016-11-01 22:40 | ED MAR SUMMARY ---
..... Medication Administration Record [facility] [address] [place] [address] Patient: DONALD LANDON Visit ID: [id number] 41y, F Weight: 99.7 kg Height/Length: 63 in BMI: 38.9 ALLERGIES: Erythromycin, Penicillin Given 03:30 10/31/2016 Nicholas Ritchie R.N. Medication Administered: ZOFRAN [IVP] (ONDANSETRON HCL), Dose: 4 mg IVP over 2 minute(s), Site: #1 right AC. Medication Ordered: Zofran IV 4 mg (NOW). Given 04:00 10/31/2016 Nicholas Ritchie R.N. Medication Administered: DILAUDID [IVP] (HYDROMORPHONE HCL PF), Dose: 1 mg IVP over 2 minute(s), Site: #1 right AC. Medication Ordered: Dilaudid IV 1 mg (NOW). Given 06:01 10/31/2016 Nicholas Ritchie R.N. Medication Administered: ZOFRAN [IVP] (ONDANSETRON HCL), Dose: 4 mg IVP over 2 minute(s), Site: #1 right AC. Medication Ordered: Zofran IV 4 mg (NOW). Given 06:04 10/31/2016 Nicholas Ritchie R.N. Medication Administered: DILAUDID [IVP] (HYDROMORPHONE HCL PF), Dose: 1 mg IVP over 2 minute(s), Site: #1 right AC. Medication Ordered: Dilaudid IV 1 mg (NOW). Given 08:46 10/31/2016 Morteza Thomas R.N. Medication Administered: DILAUDID [IVP] (HYDROMORPHONE HCL PF), Dose: 1 mg IVP over 1 minute(s), Site: #1 right AC. Medication Ordered: Dilaudid IV 1 mg (NOW). Given 08:48 10/31/2016 Morteza Thomas R.N. Medication Administered: ATIVAN [IVP] (LORAZEPAM), Dose: 0.5 mg IVP over 1 minute(s), Site: #1 right AC. Medication Ordered: Ativan IV 0.5 mg (NOW).
--- NOTE | 2016-11-01 22:40 | ED DISCHARGE INSTRUCTIONS ---
Patient: DONALD LANDON General Instructions [facility] VisitID: [id number] [place] [address] 41y, F Registration Date/Time: 10/31/2016 Acute right lower quadrant abdominal pain. Single ruptured right ovarian cyst (Hemorrhagic). No simple ovarian cyst, follicular ovarian cyst, corpus luteum ovarian cyst, torsion of ovary or polycystic ovarian disease. Bacteruria. INSTRUCTIONS No strenuous activity. Rest. Do not work for two days until released. Drink plenty of fluids. Warnings: Further evaluation is necessary. GENERAL WARNINGS: Return or contact your physician immediately if your condition worsens or changes unexpectedly, if not improving as expected, or if other problems arise. Your Current Medications: CONTINUE TAKING THE FOLLOWING MEDICATIONS: TiZANidine HCl Oral : Tablet 2 mg, 2 tablets 3x a day. TraMADol HCl Oral. Xanax Oral. Prescription Medications: Zofran (orally disintegrating tablets) 4 mg: take 1 orally every 4 hours as needed for nausea. Dispense fifteen (15). No refill. Substitution is permissible. Macrobid 100 mg: Take 1 capsule orally every 12 hours for 7 days. No refills. Substitution is permissible. Oxycodone/APAP 5 mg/325 mg: take 1-2 tablets orally every 4 hours as needed for pain. Dispense twenty (20). No refill. Understanding of the discharge instructions verbalized by patient. Discharge instructions reviewed with and understanding was verbalized by spouse. Follow-up with: Gail Gerber DO, import/export freight forwarder, , [facility], [address] [place] [address] Follow up Wednesday in two days. Call for the next available appointment. ADDITIONAL INFORMATION Ovarian Cyst The ovary is a small organ located on each side of the uterus. During each menstrual cycle a tiny egg sac forms in the ovary. If the egg is released but does not occur, this sac usually dissolves. Sometimes, the sac may fill with fluid. It then enlarges into a painful cyst. Usually the cyst will rupture or shrink on its own. In either case, the pain gradually goes away over the next 1-3 days. If the cyst does not shrink or rupture, it may cause continued pain. Home Care: Rest in bed and avoid heavy exertion until you are feeling better. Heat to the lower abdomen usually helps (heating pad or hot packs -- a small towel soaked in hot water). You may use acetaminophen (Tylenol) or ibuprofen (Motrin, Advil) to control pain, unless another pain medicine was prescribed. [NOTE: If you have chronic liver or kidney disease or ever had a stomach ulcer or GI bleeding, talk with your doctor before using these medicines.] Follow Up: See your doctor within the next 2-3 days if your pain doesnt improve. Otherwise, follow up with your doctor after your next period or as directed by our staff. Get Prompt Medical Attention if any of the following occur: Pain worsens or fails to respond to the above measures Fever of 100.4F (38C) or higher, or as directed by your healthcare provider Heavy vaginal bleeding (soaking one pad an hour for three hours) You feel weak or dizzy Fainting Passage of a pink or tavera tissue with menstrual bleeding Ondansetron Oral disintegrating tablet What is this medicine? ONDANSETRON (on RICH se elvis) is used to treat nausea and vomiting caused by chemotherapy. It is also used to prevent or treat nausea and vomiting after surgery. How should I use this medicine? These tablets are made to dissolve in the mouth. Do not try to push the tablet through the foil backing. With dry hands, peel away the foil backing and gently remove the tablet. Place the tablet in the mouth and allow it to dissolve, then swallow. While you may take these tablets with water, it is not necessary to do so. Talk to your cage maker regarding the use of this medicine in children. Special care may be needed. What side effects may I notice from receiving this medicine? Side effects that you should report to your doctor or health director career as soon as possible: allergic reactions like skin rash, itching or hives, swelling of the face, lips, or tongue breathing problems dizziness fast or irregular heartbeat feeling faint or lightheaded, falls fever and chills swelling of the hands and feet tightness in the chest Side effects that usually do not require medical attention (report to your doctor or health director career if they continue or are bothersome): constipation or diarrhea headache What may interact with this medicine? Do not take this medicine with any of the following medications: -apomorphine -cisapride -dofetilide -dronedarone -pimozide -thioridazine -ziprasidone This medicine may also interact with the following medications: -carbamazepine -phenytoin -rifampicin -tramadol -other medicines that prolong the QT interval (cause an abnormal heart rhythm) What if I miss a dose? If you miss a dose, take it as soon as you can. If it is almost time for your next dose, take only that dose. Do not take double or extra doses. Where should I keep my medicine? Keep out of the reach of children. Store between 2 and 30 degrees C (36 and 86 degrees F). Throw away any unused medicine after the expiration date. What should I tell my health care provider before I take this medicine? They need to know if you have any of these conditions: heart disease history of irregular heartbeat liver disease low levels of magnesium or potassium in the blood an unusual or allergic reaction to ondansetron, granisetron, other medicines, foods, dyes, or preservatives or trying to get breast-feeding What should I watch for while using this medicine? Check with your doctor or health director career as soon as you can if you have any sign of an allergic reaction. Oxycodone Hydrochloride, Acetaminophen Oral tablet What is this medicine? ACETAMINOPHEN; OXYCODONE (a set a CLYDE raj fen; ox i KOE done) is a pain reliever. It is used to treat mild to moderate pain. How should I use this medicine? Take this medicine by mouth with a full glass of water. Follow the directions on the prescription label. Take your medicine at regular intervals. Do not take your medicine more often than directed. Talk to your cage maker regarding the use of this medicine in children. Special care may be needed. Patients over 65 years old may have a stronger reaction and need a smaller dose. What side effects may I notice from receiving this medicine? Side effects that you should report to your doctor or health director career as soon as possible: allergic reactions like skin rash, itching or hives, swelling of the face, lips, or tongue breathing difficulties, wheezing confusion light headedness or fainting spells severe stomach pain yellowing of the skin or the whites of the eyes Side effects that usually do not require medical attention (report to your doctor or health director career if they continue or are bothersome): dizziness drowsiness nausea vomiting What may interact with this medicine? alcohol antihistamines barbiturates like amobarbital, butalbital, butabarbital, methohexital, pentobarbital, phenobarbital, thiopental, and secobarbital benztropine drugs for bladder problems like solifenacin, trospium, oxybutynin, tolterodine, hyoscyamine, and methscopolamine drugs for breathing problems like ipratropium and tiotropium drugs for certain stomach or intestine problems like propantheline, homatropine methylbromide, glycopyrrolate, atropine, belladonna, and dicyclomine general anesthetics like etomidate, ketamine, nitrous oxide, propofol, desflurane, enflurane, halothane, isoflurane, and sevoflurane medicines for depression, anxiety, or psychotic disturbances medicines for sleep muscle relaxants naltrexone narcotic medicines (opiates) for pain phenothiazines like perphenazine, thioridazine, chlorpromazine, mesoridazine, fluphenazine, prochlorperazine, promazine, and trifluoperazine scopolamine tramadol trihexyphenidyl What if I miss a dose? If you miss a dose, take it as soon as you can. If it is almost time for your next dose, take only that dose. Do not take double or extra doses. Where should I keep my medicine? Keep out of the reach of children. This medicine can be abused. Keep your medicine in a safe place to protect it from theft. Do not share this medicine with anyone. Selling or giving away this medicine is dangerous and against the law. Store at room temperature between 20 and 25 degrees C (68 and 77 degrees F). Keep container tightly closed. Protect from light. This medicine may cause accidental overdose and if it is taken by other adults, children, or pets. Flush any unused medicine down the toilet to reduce the chance of harm. Do not use the medicine after the expiration date. What should I tell my health care provider before I take this medicine? They need to know if you have any of these conditions: brain tumor Crohn's disease, inflammatory bowel disease, or ulcerative colitis drink more than 3 alcohol containing drinks per day drug abuse or addiction head injury heart or circulation problems kidney disease or problems going to the bathroom liver disease lung disease, asthma, or breathing problems an unusual or allergic reaction to acetaminophen, oxycodone, other opioid analgesics, other medicines, foods, dyes, or preservatives or trying to get breast-feeding What should I watch for while using this medicine? Tell your doctor or health director career if your pain does not go away, if it gets worse, or if you have new or a different type of pain. You may develop tolerance to the medicine. Tolerance means that you will need a higher dose of the medication for pain relief. Tolerance is normal and is expected if you take this medicine for a long time. Do not suddenly stop taking your medicine because you may develop a severe reaction. Your body becomes used to the medicine. This does NOT mean you are addicted. Addiction is a behavior related to getting and using a drug for a non-medical reason. If you have pain, you have a medical reason to take pain medicine. Your doctor will tell you how much medicine to take. If your doctor wants you to stop the medicine, the dose will be slowly lowered over time to avoid any side effects. You may get drowsy or dizzy. Do not drive, use machinery, or do anything that needs mental alertness until you know how this medicine affects you. Do not stand or sit up quickly, especially if you are an older patient. This reduces the risk of dizzy or fainting spells. Alcohol may interfere with the effect of this medicine. Avoid alcoholic drinks. There are different types of narcotic medicines (opiates) for pain. If you take more than one type at the same time, you may have more side effects. Give your health care provider a list of all medicines you use. Your doctor will tell you how much medicine to take. Do not take more medicine than directed. Call emergency for help if you have problems breathing. The medicine will cause constipation. Try to have a bowel movement at least every 2 to 3 days. If you do not have a bowel movement for 3 days, call your doctor or health director career. Do not take Tylenol (acetaminophen) or medicines that have acetaminophen with this medicine. Too much acetaminophen can be very dangerous. Many nonprescription medicines contain acetaminophen. Always read the labels carefully to avoid taking more acetaminophen. You have been given the following additional information: Ovarian Cyst Ondansetron Oral disintegrating tablet Oxycodone Hydrochloride, Acetaminophen Oral tablet No strenuous activity. Rest. Do not work for two days until released. (Electronically signed by Shayne Spencer MD 11/01/2016 22:39)
--- NOTE | 2016-11-01 22:40 | ED MED RECONCILIATION SUMMARY ---
Patient: DONALD LANDON Medication Reconciliation Report [facility] VisitID: [id number] [address] [place] [address] 41y, F Registration Date/Time: 10/31/2016 Weight: 99.7 kg Height/Length: 63 in. BMI: 38.9 ALLERGIES: Erythromycin, Penicillin The patient's Home Medications are listed below: CONTINUE TAKING THE FOLLOWING MEDICATIONS: TiZANidine HCl Oral (2 mg) 2 tablets, 3x a day TraMADol HCl Oral Xanax Oral The source(s) of the original Home Medication information: patient The following Medications were given to the patient in the Emergency Department: Zofran [IVP] IVP 4 mg, administered: 10/31/2016 3:30:00 AM Dilaudid [IVP] IVP 1 mg, administered: 10/31/2016 4:00:00 AM Zofran [IVP] IVP 4 mg, administered: 10/31/2016 6:01:00 AM Dilaudid [IVP] IVP 1 mg, administered: 10/31/2016 6:04:00 AM Dilaudid [IVP] IVP 1 mg, administered: 10/31/2016 8:46:00 AM Ativan [IVP] IVP 0.5 mg, administered: 10/31/2016 8:48:00 AM The following Medications were prescribed to the patient: Zofran (orally disintegrating tablets) 4 mg: take 1 orally every 4 hours as needed for nausea. Dispense fifteen (15). No refill. Substitution is permissible. -- Shayne [place] MD Macrobid 100 mg: Take 1 capsule orally every 12 hours for 7 days. No refills. Substitution is permissible. -- Shayne Spencer MD Oxycodone/APAP 5 mg/325 mg: take 1-2 tablets orally every 4 hours as needed for pain. Dispense twenty (20). No refill. -- Shayne Spencer MD
--- NOTE | 2016-11-01 22:40 | ED MAR SUMMARY ---
..... Medication Administration Record [facility] [address] [place] [address] Patient: DONALD LANDON Visit ID: [id number] 41y, F Weight: 99.7 kg Height/Length: 63 in BMI: 38.9 ALLERGIES: Erythromycin, Penicillin Given 03:30 10/31/2016 Nicholas Ritchie R.N. Medication Administered: ZOFRAN [IVP] (ONDANSETRON HCL), Dose: 4 mg IVP over 2 minute(s), Site: #1 right AC. Medication Ordered: Zofran IV 4 mg (NOW). Given 04:00 10/31/2016 Nicholas Ritchie R.N. Medication Administered: DILAUDID [IVP] (HYDROMORPHONE HCL PF), Dose: 1 mg IVP over 2 minute(s), Site: #1 right AC. Medication Ordered: Dilaudid IV 1 mg (NOW). Given 06:01 10/31/2016 Nicholas Ritchie R.N. Medication Administered: ZOFRAN [IVP] (ONDANSETRON HCL), Dose: 4 mg IVP over 2 minute(s), Site: #1 right AC. Medication Ordered: Zofran IV 4 mg (NOW). Given 06:04 10/31/2016 Nicholas Ritchie R.N. Medication Administered: DILAUDID [IVP] (HYDROMORPHONE HCL PF), Dose: 1 mg IVP over 2 minute(s), Site: #1 right AC. Medication Ordered: Dilaudid IV 1 mg (NOW). Given 08:46 10/31/2016 Morteza Thomas R.N. Medication Administered: DILAUDID [IVP] (HYDROMORPHONE HCL PF), Dose: 1 mg IVP over 1 minute(s), Site: #1 right AC. Medication Ordered: Dilaudid IV 1 mg (NOW). Given 08:48 10/31/2016 Morteza Thomas R.N. Medication Administered: ATIVAN [IVP] (LORAZEPAM), Dose: 0.5 mg IVP over 1 minute(s), Site: #1 right AC. Medication Ordered: Ativan IV 0.5 mg (NOW).
== END 2016-10-31 09:30 | disposition home or self-care (01) ==
LOC: ED SRH 01:56
DX: N83.201 Unspecified ovarian cyst, right side (principal); R10.31 Right lower quadrant pain; R82.71 Bacteriuria; I10 Essential (primary) hypertension; Z79.899 Other long term (current) drug therapy; F17.210 Nicotine dependence, cigarettes, uncomplicated; Z88.0 Allergy status to penicillin; Z88.1 Allergy status to other antibiotic agents
CPT/HCPCS: 90004; 90100; 90148; 90469; 92235; 92530; 92760; 92761; 92762; 92763; 92764; 92765; 92766; 92767; 93070; 95059

== ENCOUNTER 2016-11-03 07:49 | Outpatient (CLI) | payer BC ==
--- NOTE | 2016-11-03 09:55 | DIAGNOSTIC IMAGING REPORT ---
PROCEDURE: US COMPLETE PELVIC W/TRANSVAG INDICATION: PELVIC PAIN,CYST, follow-up TECHNIQUE: Transabdominal and endovaginal tavera scale and color Doppler sonographic images of the female pelvis were obtained. COMPARISON: Pelvic ultrasound and CT abdomen/pelvis 10/31/2016 FINDINGS: TRANSABDOMINAL SCANS: Left adnexal complex cystic mass. Normal kidneys. TRANSVAGINAL SCANS: Uterus measures 8.1 x 6.6 x 5.5 cm. There are 1.8 cm mid, 1.0 cm right anterior and 2.3 cm left anterior pedunculated fibroids. Endometrium measures of 6.8 mm. Right ovary not visualized. Complex left ovarian cyst measures 8.1 x 6.6 x 5.5 cm (previously 8.6 x 7.5 x 6.2 cm), with low level internal echoes, suggestive of a hemorrhagic cyst. Vascular flow was present . There is an additional contiguous 6.8 x 5.7 x 3.4 cm hypoechoic structure anterior to the uterus, with some vascular flow, possibly the ovary with an additional hemorrhagic cyst or hemorrhagic fluid. In retrospect, this is unchanged from prior study. No evidence of free fluid. IMPRESSION: 1. Stable 8.1 cm complex left ovarian cystic mass suggestive of a hemorrhagic cyst 2. Additional 6.8 cm contiguous hypoechoic structure anterior to the uterus, possibly the left ovary with an additional hemorrhagic cyst or hemorrhagic fluid , unchanged 3. Fibroid uterus 4. Results discussed with .
== END 2016-11-03 23:00 ==
LOC: US SRH 07:49
DX: D25.9 Leiomyoma of uterus, unspecified (principal)

== ENCOUNTER 2017-02-23 11:35 | Emergency (ER) | payer BC ==
--- NOTE | 2017-02-23 13:35 | ED ORDER SUMMARY ---
..... Patient: DONALD LANDON OrderSheet [facility] VisitID: [id number] [place] [address] 41y, F Registration Date/Time: 02/23/2017 ORDER SHEET Weight: 102.0 kg (stated) Allergies: Erythromycin, Penicillin GENERAL ORDERS: US Pelvic Complete w Transvag (left lower abdominal pain) Urgent (12:14 02/23/2017 [facility] DO) (Ack 12:20 LNations ER Tech1) (13:01 EHassan R.N.) CBC w Diff Urgent (12:02/23/2017 [facility] DO) (Ack 12:19 LNations ER Tech1) (12:25 EHassan R.N.) CMP Urgent (12:02/23/2017 [facility] DO) (Ack 12:19 LNations ER Tech1) (12:25 EHassan R.N.) UA-Culture if indicated Urgent (12:02/23/2017 [facility] DO) (Ack 12:19 LNations ER Tech1) (12:25 EHassan R.N.) Amylase Urgent (12:02/23/2017 [facility] DO) (Ack 12:19 LNations ER Tech1) (12:25 EHassan R.N.) Lipase Urgent (12:02/23/2017 [facility] DO) (Ack 12:19 LNations ER Tech1) (12:25 EHassan R.N.) PT with INR Urgent (12:02/23/2017 [facility] DO) (Ack 12:20 LNations ER Tech1) (12:25 EHassan R.N.) NPO (12:02/23/2017 [facility] DO) (Ack 12:19 LNations ER Tech1) (12:25 EHassan R.N.) Call (Place call to): (Dr Kingsley) (13:23 02/23/2017 [facility] DO) (13:28 LNations ER Tech1) MEDICATION ORDERS: IV FLUIDS: IV NS : initial bolus 1000 mL (1000 mL/hr), then 500 mL/hr for X2 (NOW) (12:14 [facility] (12:26 Malcolm R.N.) Zofran IV 4 mg (NOW) (12:15 02/23/2017 [facility] ) (12:26 Malcolm R.N.) Dilaudid IV 0.5 mg (HIGH ALERT MEDICATION, NOW) (12:15 02/23/2017 [facility]) (12:27 Malcolm R.N.) ORDER SHEET NOTES: [Electronically signed by Lacey Torres R.N. (14:02/23/2017)] [Electronically signed by Aldo Garcia DO (23:09 02/23/2017)] [Electronically locked/signed by Lacey Torres R.N. (14:02/23/2017)]
--- NOTE | 2017-02-23 13:35 | ED CLINICAL REPORT ---
Clinical Report - Physicians/Mid Levels [facility] [address] [place] [address] 02/23/2017 11:35 Patient: DONALD LANDON Time Seen: 12:13. Arrived- By private vehicle. Historian- patient. HISTORY OF PRESENT ILLNESS Chief Complaint: ABDOMINAL PAIN. This started last night and is still present. It was gradual in onset and has been waxing/waning. It is described as "pain". It is described as located in the pelvic area, in the suprapubic area and in the left lower quadrant and left pelvis and radiating to the low back. At its maximum, severity described as severe. When seen in the E.D., severity described as severe. Modifying factors- worsened by movement. Relieved by rest. No vomiting or diarrhea. (Pt states pain started yesterday cramping like and it became worst today when she tried to lifting at the job, now is localized to her left mid quadrant and lower back pain. Pt denies vomiting or fevers, pt states being here for the same pain back in October, was told that she had a "cyst size of an orange". Pt does admit to being nauseous Here for further evaluation). Similar symptoms previously: Diagnosis: ovarian cyst. Recent medical care: Not recently seen/assessed. REVIEW OF SYSTEMS No constipation, black stools, hematemesis, difficulty with urination or pain with urination. No urinary frequency, bloody stools, fever, headache or sore throat. No chest pain, difficulty breathing or cough. Denies current . The patient has had back pain. All systems otherwise negative, except as recorded above. PAST HISTORY Fibromyalgia. Hypertension. Anxiety Reaction. Ovarian cyst SURGERIES: Cholecystectomy. Tonsillectomy. Uterine ablation. Medications: None. Allergies: Erythromycin. Penicillin. SOCIAL HISTORY Smoker- current status unknown. No alcohol use or drug use. ADDITIONAL NOTES The nursing notes have been reviewed. PHYSICAL EXAM Vital Signs: 02/23/2017 11:40 BP: 157/91. HR: 111. RR: 18. O2 saturation: 99%. Temp: 98.6 F. Pain level now: 10/10. Appearance: Alert. Oriented X3. Patient in moderate distress. Eyes: Eyes normal inspection. No scleral icterus or pale conjunctivae. ENT: Pharynx normal. No pharyngeal erythema or tonsillar exudate. The mucous membranes are not dry. Neck: Normal inspection. Neck supple. CVS: Tachycardia. Heart sounds normal. Pulses normal. Respiratory: No respiratory distress. Breath sounds normal. Chest nontender. No rales, rhonchi or wheezes. Abdomen: Soft. Moderate tenderness in the suprapubic area, left lower quadrant and lower abdomen. No mass. Obese. No rebound tenderness or guarding. Back: Normal inspection. Skin: Skin warm and dry. Normal skin color. Normal skin turgor. Extremities: Extremities exhibit normal ROM. No lower extremity edema. Neuro: Oriented X 3. No motor deficit. LABS, X-RAYS, AND EKG Abdominal Sonogram: (6.5cm Left Ovarian Cyst Fibroid uterus). The study was interpreted contemporaneously by me. The study was discussed with the radiologist (via tech). Laboratory Tests: UA-Culture if indicated: (GUS: 02/23/2017 12:05) ( MsgRcvd 02/23/2017 12:37) Final results Test Result Flag Units (Reference) URINE COLOR YELLOW URINE APPEARANCE SL CLOUDY URINE GLUCOSE NEGATIVE (NEGATIVE) URINE BILIRUBIN NEGATIVE (NEGATIVE) URINE KETONE NEGATIVE (NEGATIVE) URINE SPECIFIC GRAVITY 1.020 (1.010-1.030) URINE PH 6.0 (5.0-8.0) URINE PROTEIN NEGATIVE (NEGATIVE) URINE UROBILINOGEN 0.2 EU/dL (0.2-1.0) URINE NITRITE NEGATIVE (NEGATIVE) URINE BLOOD 1+ (NEGATIVE) URINE LEUK ESTERASE NEGATIVE (NEGATIVE) URINE RBC 0-1 rbc/hpf (0-1) URINE WBC 1-3 wbc/hpf (0-1) URINE EPITHELIAL CELLS 1-3 EPI/hpf (0-5) URINE BACTERIA TRACE (<1+) (NONE SEEN) URINE COMMENT CULT NOT INDICATED URINE CULTURES ARE SET-UP BASED ON THE FOLLOWING CRITERIA:POSITIVE NITRITEPOSITIVE LEUKOCYTE ESTERASEGREATER THAN 10 WHITE BLOOD CELLSMODERATE (2+) OR GREATER BACTERIA CBC w Diff: (GUS: 02/23/2017 12:20) ( MsgRcvd 02/23/2017 12:27) Final results Test Result Flag Units (Reference) WHITE BLOOD COUNT 13.4 H K/uL (4.5-11.5) RED BLOOD COUNT 4.49 M/uL (4.00-5.20) HEMOGLOBIN 13.7 gm/dL (12.0-16.0) HEMATOCRIT 40.7 % (36.0-46.0) MEAN CELL VOLUME 91 fL (80-100) MEAN CORPUSCULAR HGB 31 pg (26-34) MEAN CORPUSCULAR HGB CONC 34 g/dL (31-37) RED CELL DISTRIBUTION WIDTH 13.1 % (11.6-14.8) PLATELET COUNT 337 K/uL (150-400) NEUTROPHIL % 71.8 % (50-75) LYMPH % 22.4 L % (25-40) MONO % 4.4 % (3-14) EOSINOPHIL % 0.5 % (0-4) BASOPHIL % 0.9 % (0-2) PT with INR: (GUS: 02/23/2017 12:20) ( [facility] 02/23/2017 12:49) Final results Test Result Flag Units (Reference) INR 0.8 (0.8-1.2) Low Intensity Therapy: INR 1.5-2.0 PT range 18.5-23.1Mod.Intensity Therapy: INR 2.0-3.0 PT range 23.1-31.5High Intensity Therapy: INR 2.5-3.5 PT range 27.4-35.5High Intensity Therapy 2: INR 3.0-4.0 PT range 31.5-39.3 CMP: (GUS: 02/23/2017 12:20) ( [facility] 02/23/2017 12:41) Final results Test Result Flag Units (Reference) GLUCOSE 113 H mg/dL (70-110) BUN 15 mg/dL (7-18) CREATININE 0.7 mg/dL (0.6-1.3) Estimated GFR >60 mL/min Estimated GFR- >60 mL/min Note: Persistent reduction over 3 months in eGFR<60 mL/min/1.73 m2 defines CKD. Patients with eGFR values>=60 mL/min/1.73 m2 may also have CKD if evidence ofpersistent proteinuria. Additional information may be foundat [email or web address].org. SODIUM 139 mmol/L (136-145) POTASSIUM 3.6 mmol/L (3.5-5.1) CHLORIDE 103 mmol/L (98-107) CARBON DIOXIDE 26 mmol/L (21-32) CALCIUM 8.5 mg/dL (8.5-10.1) TOTAL PROTEIN 7.3 g/dL (6.4-8.2) ALBUMIN 3.6 g/dL (3.3-5.0) BILIRUBIN, TOTAL 0.2 mg/dL (0.0-1.0) ALKALINE PHOSPHATASE 83 U/L (46-116) AST (SGOT) 15 U/L (15-37) ALT (SGPT) 15 U/L (12-78) LIPASE 153 U/L (73-393) AMYLASE 52 U/L (25-115) . Pulse Oximetry: 02/23/2017 11:40 O2 saturation: 99%. (FIO2 - room air). Interpretation: normal. PROGRESS AND PROCEDURES Course of Care: Normal Saline 1 liter IVPB given. Zofran 4 mg IVP given. Dilaudid 0.5 mg IVP given. Patient is stable. Physical exam findings are improved. Symptoms much better. Discussed case with on-call health care provider, (Gran call returned 13:32). Reviewed test results. Agreed upon treatment plan. Patient/family counseled. Old ED records reviewed. Disposition: Discharged. Condition: stable and improved. CLINICAL IMPRESSION Single simple left ovarian cyst. No torsion of ovary. Mild leukocytosis. No lymphocytosis. INSTRUCTIONS Rest. Do not work for three days. Drink plenty of fluids. No alcohol until released. Do not smoke. Seek medical help to quit smoking. Warnings: Further evaluation is necessary in order to recheck abnormal lab, obtain test results, conduct further tests and assess the possibility of serious illness. It is very important to follow up with a physician. SEDATIVE MEDICATION: You were given sedative medication during your visit. Do not drive or operate dangerous machinery. CONTROLLED SUBSTANCE WARNINGS. GENERAL WARNINGS: Return or contact your physician immediately if your condition worsens or changes unexpectedly, if not improving as expected, or if other problems arise. Prescription Medications: Zofran (orally disintegrating tablets) 4 mg: take 1 orally every 8 hours as needed for nausea and vomiting. Dispense five (5). No refill. Substitution is permissible. Oxycodone/APAP 5 mg/325 mg: take 1-2 tablets orally every 8 hours as needed for pain. Dispense ten (10). No refill. Follow-up: Follow up with your doctor tomorrow. Follow-up with: Johnathon Kingsley MD, Obstetrics/Gynecology, , [facility], [address] [place] [address] Follow up in about two days. (Electronically signed by Aldo Garcia DO 02/23/2017 23:09)
--- NOTE | 2017-02-23 13:35 | ED NURSING NOTES ---
Clinical Report - Nurses [facility] [address] [place] [address] 02/23/2017 11:35 Patient: DONALD LANDON TRIAGE Triage time 1142 AM. Acuity: LEVEL 3. Chief Complaint: ABDOMINAL PAIN and NAUSEA. Alert. No acute distress. SEPSIS SCREEN: Sepsis Screen. Negative (no infection suspected/documented). [place]ZA COMA SCORE: [place] Coma Scale: 15- eyes open spontaneously (4); best verbal response- oriented x 4 (5); best motor response- obeys commands (6). --11:58 Lacey Torres R.N. 11:40 02/23/17. BP: 157/91 taken on the left arm, via an automated monitor, while lying. HR: 111. RR: 18. O2 saturation: 99% on room air. Temp: 98.6 F. Pain level now: 08/03. --11:58 Lacey Torres R.N. Weight: 102 kg stated. Height/Length: 62 inches Per Patient. BMI: 41.2. --11:44 Lacey Torres R.N. Medications None. --12:30 Lacey Torres R.N. The following entry was struck by Lacey Torres R.N., 11:56 (02/23/17) Reason - other. <<STRICKEN ENTRY-- TiZANidine HCl Oral (Tablet 2 mg) 2 tablets, 3x a day. --11:44 Lacey Torres R.N. --END STRIKE>> The following entry was struck by Lacey Torres R.N., 11:56 (02/23/17) Reason - other. <<STRICKEN ENTRY-- TraMADol HCl Oral. --11:44 Lacey Torres R.N. --END STRIKE>> The following entry was struck by Lacey Torres R.N., 11:56 (02/23/17) Reason - other(pt states stopped taking all meds for the past 3 months). <<STRICKEN ENTRY-- Xanax Oral. --11:44 Lacey Torres R.N. --END STRIKE>>. Medication/allergy information source: the patient. --:58 Lacey Torres R.N. Allergies Erythromycin. Penicillin. --:44 Lacey Torres R.N. History Arrived by private vehicle. Historian: patient. Accompanied by family. Primary physician (Dr. Crump). ( Pt states pain started yesterday cramping like and it became worst today when she tried to lifting at the job, now is localized to her left mid quadrant and lower back pain. Pt denies vomiting or fevers, pt states being here for the same pain back in October, was told that she had a "cyst size of an orange". Pt does admit to being nauseous Here for further evaluation). This started yesterday. She has had nausea and abdominal pain. No diarrhea, constipation or fever. Last oral intake by patient was breakfast this morning (930 AM). Treatment [employer]: (excedrin 5 am). PAST MEDICAL HX: Immunizations: up-to-date. Last normal menstrual period- 02 February. SOCIAL HX: Current every day light tobacco smoker (cigarette)- less than 1/2 a pack per day. No alcohol use or drug use. No recent travel. No infectious disease exposure. No known contact with a sick individual. ABUSE ASSESSMENT: No report of abuse. SELF HARM ASSESSMENT: A self harm assessment was performed. The patient answered "no" to the question "Do you have thoughts of harming or killing yourself?" and "Have you recently had thoughts about harming or killing others?". FALL RISK ASSESSMENT: Fall risk assessment completed. No fall risk identified. NUTRITIONAL RISK ASSESSMENT: The nutritional risk assessment revealed no deficiencies. FUNCTIONAL ASSESSMENT: Functional assessment: no impairments noted. LEARNING NEEDS ASSESSMENT: The learning needs assessment revealed no barriers. SKIN INTEGRITY ASSESSMENT: Skin integrity risk assessment completed. No skin integrity risk identified. --:58 Lacey Torres R.N. PROBLEMS: Ovarian Cyst. Abdominal Pain. Laceration. Fibromyalgia. Hypertension. Anxiety Reaction. Insomnia. --11:45 Lacey Torres R.N. ADDITIONAL SURGERIES: Cholecystectomy. Tonsillectomy. --11:45 Lacey Torres R.N. Ablation for bleeding (menstrual). --11:58 Lacey Torres R.N. Interventions ID band on patient. --11:58 Lacey Torres R.N. PHYSICAL ASSESSMENT To room via wheelchair. GENERAL / NEURO / PSYCH: Alert. Oriented X 4. Appears in pain. HEENT: Mucous membranes are pink. RESPIRATORY: Respirations not labored. Breath sounds within normal limits. CVS: Capillary refill less than 2 seconds. GI / : The patient has had nausea. Abdomen soft. Abdominal tenderness in the left upper quadrant and left lower quadrant. Rebound tenderness. Guarding present. Bowel sounds within normal limits. SKIN: Skin is warm and dry. --11:58 Lacey Torres R.N. NURSING PROGRESS NOTES The initial plan of care for this patient has been created This plan of care was discussed with the patient. Patient gowned. Warming measures: blanket applied. Reassurance given. Two patient identifiers checked. Call light placed in reach. Side rails up x 1. Bed placed in lowest position. Brakes of bed on. Patient ready for evaluation- ED physician notified. --11:58 Lacey Torres R.N. 12:16 02/23/2017 Site #1 started via IV in the right forearm with an 20g angiocath; two attempts. Blood drawn: rainbow set. Labeled in the presence of the patient and sent to the lab. --12:26 Lacey Torres R.N. 12:24 02/23/2017 Dilaudid (HYDROmorphone HCl PF) IVP 0.5 mg given over 30 second(s) via site #1. Allergies verified, confirmed 5 rights and sedative warning given to the patient. IV patency established. IV site checked: no pain, redness, or swelling. IV flushed thoroughly pre- and post-medication administration. IVP given by RN. --12:27 Lacey Torres R.N. 12:26 02/23/2017 Started bag #1 1000 mL IV Fluids IV NS (Saline); at 1000 mL/hr over 1 hour(s) via site #1 via IV pump. Allergies verified and confirmed 5 rights. IV patency established. IV site checked: no pain, redness, or swelling. IV flushed thoroughly pre- and post-medication administration. --12:26 Lacey Torres R.N. 12:26 02/23/2017 Zofran (Ondansetron HCl) IVP 4 mg given over 2 minute(s) via site #1. Allergies verified and confirmed 5 rights. IV patency established. IV site checked: no pain, redness, or swelling. IV flushed thoroughly pre- and post-medication administration. IVP given by RN. --12:26 Lacey Torres R.N. 12:34 02/23/17. BP: 155/92 (regular adult cuff) taken on the left arm, via an automated monitor, while lying. HR: 89. RR: 15. O2 saturation: 98% on room air. Pain level now: 02/01. --12:38 Lacey Torres R.N. Reassurance given. Reassessment after fluids administered and medication administered. She has had no adverse reaction. Overall patient status- she states feels better. GI / : The patient reports abdominal pain. Denies nausea, diarrhea or vomiting. Patient identifiers checked. Call light placed in reach. Side rails up x 1. Bed placed in lowest position. Brakes of bed on. --12:38 Lacey Torres R.N. 12:51 02/23/2017 Zofran IVP Response: no adverse reaction pain is improving. Symptoms have improved the patient feels better. --13:01 Lacey Torres R.N. 12:51 02/23/2017 Dilaudid IVP Response: no adverse reaction pain is improving. Symptoms have improved the patient feels better. --13:01 Lacey Torres R.N. 13:38 02/23/2017 IV Fluids IV NS Discontinued: bag #1 completed. Total amount infused: 1000 mL. IV patency established. IV site checked: no pain, redness, or swelling. IV flushed thoroughly. --13:38 Lacey Torres R.N. Reassurance given. The patient is calm and resting quietly. Overall patient status is improved- she states feels better. GI / : The patient reports abdominal pain. Denies nausea or diarrhea. Call light placed in reach. --13:38 Lacey Torres R.N. 13:37 02/23/17. BP: 151/91 (regular adult cuff) taken on the left arm, while lying. HR: 78. RR: 15. O2 saturation: 97% on room air. Temp: 98.7 F (oral). Pain level now: 12/04. --13:38 Lacey Torres R.N. DISPOSITION / DISCHARGE 13:58 02/23/2017 Site #1 removed upon discharge. Catheter intact. Manual pressure, pressure dressing, bandaid and bandage applied. --14:08 Lacey Torres R.N. Departure time: 1407 PM. Condition at departure: improved and stable. The goals identified in the patient's plan of care were met. No learning barriers present. Discharge instructions provided and reviewed with the patient. Reviewed medication(s) side effects, precautions, dosing and course information. Reviewed referral to an circuit walker. Activity restrictions (rest) reviewed. Work note given. Patient and spouse verbalized understanding. Written instructions provided in Spanish. The patient was discharged by the physician. She was discharged home and accompanied by spouse. She left the Emergency Department ambulatory and via private vehicle. Family member driving. FALL RISK ASSESSMENT: Fall risk assessment completed. No fall risk identified. [place] COMA SCORE: [place] Coma Scale: 15- eyes open spontaneously (4); best verbal response- oriented x 4 (5); best motor response- obeys commands (6). --14:09 Lacey Torres R.N. 14:00 02/23/17. BP: 151/92. HR: 87. RR: 14. O2 saturation: 98%. Temp: 98.7 F (oral). Pain level now: 02/01. --14:09 Lacey Torres R.N. Locked/Released at 02/23/2017 14:10 by Lacey Torres R.N.
--- NOTE | 2017-02-23 13:35 | ED ORDER SUMMARY ---
..... Patient: DONALD LANDON OrderSheet [facility] VisitID: [id number] [place] [address] 41y, F Registration Date/Time: 02/23/2017 ORDER SHEET Weight: 102.0 kg (stated) Allergies: Erythromycin, Penicillin GENERAL ORDERS: US Pelvic Complete w Transvag (left lower abdominal pain) Urgent (12:14 02/23/2017 [facility] DO) (Ack 12:20 LNations ER Tech1) (13:01 EHassan R.N.) CBC w Diff Urgent (12:02/23/2017 [facility] DO) (Ack 12:19 LNations ER Tech1) (12:25 EHassan R.N.) CMP [facility] ([facility] (Ack 12:19 LNations ER Tech1) (12:25 EHassan R.N.) UA-Culture if indicated Urgent (12:02/23/2017 [facility] DO) (Ack 12:19 LNations ER Tech1) (12:25 EHassan R.N.) Amylase Urgent (12:02/23/2017 [facility]) (Ack 12:19 LNations ER Tech1) (12:25 EHassan R.N.) Lipase Urgent (12:02/23/2017 [facility]) (Ack 12:19 LNations ER Tech1) (12:25 EHassan R.N.) PT with INR Urgent (12:02/23/2017 [facility] DO) (Ack 12:20 LNations ER Tech1) (12:25 EHassan R.N.) NPO (12:02/23/2017 [facility]) (Ack 12:19 LNations ER Tech1) (12:25 EHassan R.N.) Call (Place call to): (Dr Kingsley) (13:23 02/23/2017 [facility] DO) (13:28 LNations ER Tech1) MEDICATION ORDERS: IV FLUIDS: IV NS : initial bolus 1000 mL (1000 mL/hr), then 500 mL/hr for X2 (NOW) [facility]12:14 [facility] (12:26 Malcolm R.N.) Zofran IV 4 mg (NOW) (12:15 [facility] (12:26 Malcolm R.N.) Dilaudid IV 0.5 mg (HIGH ALERT MEDICATION, NOW) (12:15 02/23/2017 [facility]) (12:27 Malcolm R.N.) ORDER SHEET NOTES: [Electronically signed by Lacey Torres R.N. (14:02/23/2017)] [Electronically signed by Aldo Garcia DO (23:09 02/23/2017)] [Electronically locked/signed by Lacey Torres R.N. (14:02/23/2017)]
--- NOTE | 2017-02-23 14:44 | DIAGNOSTIC IMAGING REPORT ---
PROCEDURE: US COMPLETE PELVIC W/TRANSVAG INDICATION: PAIN TECHNIQUE: Transabdominal and endovaginal tavera scale and color Doppler sonographic images of the female pelvis were obtained. COMPARISON: Pelvic ultrasound 11/03/2016. FINDINGS: TRANSABDOMINAL SCANS: Normal kidneys. TRANSVAGINAL SCANS: Uterus measures 6.2 x 7.2 x 4.8 cm. Two anterior fibroids measure 0.6 and 1.1 cm with posterior 1.8 cm fibroid. Normal endometrium measures 7 mm. Right ovary not visualized. Left ovary measures 6.6 x 5.5 x 5.1 cm with a 5.3 cm simple cyst ( previously 8.1 cm hemorrhagic cyst). Normal vascular flow to the left ovary. No free fluid in the cul-de-sac. IMPRESSION: 1. Resolving 5.3 cm simple left ovarian cyst (previously 8.1 cm hemorrhagic cyst) 2. Fibroid uterus
--- NOTE | 2017-02-23 23:10 | ED DISCHARGE INSTRUCTIONS ---
Patient: DONALD LANDON General Instructions [facility] VisitID: [id number] [place] [address] 41y, F Registration Date/Time: 02/23/2017 Single simple left ovarian cyst. No torsion of ovary. Mild leukocytosis. No lymphocytosis. INSTRUCTIONS Rest. Do not work for three days. Drink plenty of fluids. No alcohol until released. Do not smoke. Seek medical help to quit smoking. Warnings: Further evaluation is necessary in order to recheck abnormal lab, obtain test results, conduct further tests and assess the possibility of serious illness. It is very important to follow up with a physician. SEDATIVE MEDICATION: You were given sedative medication during your visit. Do not drive or operate dangerous machinery. CONTROLLED SUBSTANCE WARNINGS. GENERAL WARNINGS: Return or contact your physician immediately if your condition worsens or changes unexpectedly, if not improving as expected, or if other problems arise. Prescription Medications: Zofran (orally disintegrating tablets) 4 mg: take 1 orally every 8 hours as needed for nausea and vomiting. Dispense five (5). No refill. Substitution is permissible. Oxycodone/APAP 5 mg/325 mg: take 1-2 tablets orally every 8 hours as needed for pain. Dispense ten (10). No refill. Follow-up: Follow up with your doctor tomorrow. Follow-up with: Johnathon Kingsley MD, Obstetrics/Gynecology, , [facility], [address] [place] [address] Follow up in about two days. ADDITIONAL INFORMATION Ovarian Cyst The ovary is a small organ located on each side of the uterus. During each menstrual cycle a tiny egg sac forms in the ovary. If the egg is released but does not occur, this sac usually dissolves. Sometimes, the sac may fill with fluid. It then enlarges into a painful cyst. Usually the cyst will rupture or shrink on its own. In either case, the pain gradually goes away over the next 1-3 days. If the cyst does not shrink or rupture, it may cause continued pain. Home Care: Rest in bed and avoid heavy exertion until you are feeling better. Heat to the lower abdomen usually helps (heating pad or hot packs -- a small towel soaked in hot water). You may use acetaminophen (Tylenol) or ibuprofen (Motrin, Advil) to control pain, unless another pain medicine was prescribed. [NOTE: If you have chronic liver or kidney disease or ever had a stomach ulcer or GI bleeding, talk with your doctor before using these medicines.] Follow Up: See your doctor within the next 2-3 days if your pain doesnt improve. Otherwise, follow up with your doctor after your next period or as directed by our staff. Get Prompt Medical Attention if any of the following occur: Pain worsens or fails to respond to the above measures Fever of 100.4F (38C) or higher, or as directed by your healthcare provider Heavy vaginal bleeding (soaking one pad an hour for three hours) You feel weak or dizzy Fainting Passage of a pink or tavera tissue with menstrual bleeding How To Quit Smoking Smoking is one of the hardest habits to break. About half of all those who have ever smoked have been able to quit, and most of those (about 70%) who still smoke want to quit. Here are some of the best ways to stop smoking. Keep Trying: It takes most smokers about 8 tries before they are finally able to fully quit. So, the more often you try and fail, the better your chance of quitting the next time! So, don't give up! Go Cold [place]: Most ex-smokers quit cold turkey. Trying to cut back gradually doesn't seem to work as well, perhaps because it continues the smoking habit. Also, it is possible to fool yourself by inhaling more while smoking fewer cigarettes. This results in the same amount of nicotine in your body! Get Support: Support programs can make an important difference, especially for the heavy smoker. These groups offer lectures, methods to change your behavior and peer support. Call the free national Quitline for more information. 633-DNNN-FFJ (325-377-4920). Low-cost or free programs are offered by many hospitals, local chapters of the [place] [employer] (464-888-9501) and the [place] [employer] (039-659-2132). Support at home is important too. Non-smokers can help by offering praise and encouragement. If the smoker fails to quit, encourage them to try again! Monw-Ccr-Utfcksb Medicines: For those who can't quit on their own, Nicotine Replacement Therapy (NRT) may make quitting much easier. Certain aids such as the nicotine patch, gum and lozenge are available without a prescription. However, it is best to use these under the guidance of your doctor. The skin patch provides a steady supply of nicotine to the body. Nicotine gum and lozenge gives temporary bursts of low levels of nicotine. Both methods take the edge off the craving for cigarettes. WARNING: If you feel symptoms of nicotine overdose, such as nausea, vomiting, dizziness, weakness, or fast heartbeat, stop using these and see your doctor. Prescription Medicines: After evaluating your smoking patterns and prior attempts at quitting, your doctor may offer a prescription medicine such as bupropion (Zyban, Wellbutrin), varenicline (Chantix, Champix), a niocotine inhaler or nasal spray. Each has its unique advantage and side effects which your doctor can review with you. Health Benefits Of Quitting: The benefits of quitting start right away and keep improving the longer you go without smokin minutes: blood pressure and pulse return to normal 8 hours: oxygen levels return to normal 2 days: ability to smell and taste begins to improve as damaged nerves start to regrow 2-3 weeks: circulation and lung function improves 1-9 months: decreased cough, congestion and shortness of breath; less tired 1 year: risk of heart attack decreases by half 5 years: risk of lung cancer decreases by half; risk of stroke becomes the same as a non-smoker For information about how to quit smoking, visit the following links: National [employer] [place] , Clearing the Air, Quit Smoking Today - an online booklet. http://www.smokefree.gov/pubs/clearing_the_air.pdf Smokefree.gov http://smokefree.gov/ QuitNet http://www.quitnet.com/ Ondansetron Oral disintegrating tablet What is this medicine? ONDANSETRON (on RICH se elvis) is used to treat nausea and vomiting caused by chemotherapy. It is also used to prevent or treat nausea and vomiting after surgery. How should I use this medicine? These tablets are made to dissolve in the mouth. Do not try to push the tablet through the foil backing. With dry hands, peel away the foil backing and gently remove the tablet. Place the tablet in the mouth and allow it to dissolve, then swallow. While you may take these tablets with water, it is not necessary to do so. Talk to your physician surgeon regarding the use of this medicine in children. Special care may be needed. What side effects may I notice from receiving this medicine? Side effects that you should report to your doctor or health career law clerk as soon as possible: allergic reactions like skin rash, itching or hives, swelling of the face, lips, or tongue breathing problems dizziness fast or irregular heartbeat feeling faint or lightheaded, falls fever and chills swelling of the hands and feet tightness in the chest Side effects that usually do not require medical attention (report to your doctor or health career law clerk if they continue or are bothersome): constipation or diarrhea headache What may interact with this medicine? Do not take this medicine with any of the following medications: -apomorphine -cisapride -dofetilide -dronedarone -pimozide -thioridazine -ziprasidone This medicine may also interact with the following medications: -carbamazepine -phenytoin -rifampicin -tramadol -other medicines that prolong the QT interval (cause an abnormal heart rhythm) What if I miss a dose? If you miss a dose, take it as soon as you can. If it is almost time for your next dose, take only that dose. Do not take double or extra doses. Where should I keep my medicine? Keep out of the reach of children. Store between 2 and 30 degrees C (36 and 86 degrees F). Throw away any unused medicine after the expiration date. What should I tell my health care provider before I take this medicine? They need to know if you have any of these conditions: heart disease history of irregular heartbeat liver disease low levels of magnesium or potassium in the blood an unusual or allergic reaction to ondansetron, granisetron, other medicines, foods, dyes, or preservatives or trying to get breast-feeding What should I watch for while using this medicine? Check with your doctor or health career law clerk as soon as you can if you have any sign of an allergic reaction. Oxycodone Hydrochloride, Acetaminophen Oral tablet What is this medicine? ACETAMINOPHEN; OXYCODONE (a set a CLYDE raj fen; ox i KOE done) is a pain reliever. It is used to treat mild to moderate pain. How should I use this medicine? Take this medicine by mouth with a full glass of water. Follow the directions on the prescription label. Take your medicine at regular intervals. Do not take your medicine more often than directed. Talk to your physician surgeon regarding the use of this medicine in children. Special care may be needed. Patients over 65 years old may have a stronger reaction and need a smaller dose. What side effects may I notice from receiving this medicine? Side effects that you should report to your doctor or health career law clerk as soon as possible: allergic reactions like skin rash, itching or hives, swelling of the face, lips, or tongue breathing difficulties, wheezing confusion light headedness or fainting spells severe stomach pain yellowing of the skin or the whites of the eyes Side effects that usually do not require medical attention (report to your doctor or health career law clerk if they continue or are bothersome): dizziness drowsiness nausea vomiting What may interact with this medicine? alcohol antihistamines barbiturates like amobarbital, butalbital, butabarbital, methohexital, pentobarbital, phenobarbital, thiopental, and secobarbital benztropine drugs for bladder problems like solifenacin, trospium, oxybutynin, tolterodine, hyoscyamine, and methscopolamine drugs for breathing problems like ipratropium and tiotropium drugs for certain stomach or intestine problems like propantheline, homatropine methylbromide, glycopyrrolate, atropine, belladonna, and dicyclomine general anesthetics like etomidate, ketamine, nitrous oxide, propofol, desflurane, enflurane, halothane, isoflurane, and sevoflurane medicines for depression, anxiety, or psychotic disturbances medicines for sleep muscle relaxants naltrexone narcotic medicines (opiates) for pain phenothiazines like perphenazine, thioridazine, chlorpromazine, mesoridazine, fluphenazine, prochlorperazine, promazine, and trifluoperazine scopolamine tramadol trihexyphenidyl What if I miss a dose? If you miss a dose, take it as soon as you can. If it is almost time for your next dose, take only that dose. Do not take double or extra doses. Where should I keep my medicine? Keep out of the reach of children. This medicine can be abused. Keep your medicine in a safe place to protect it from theft. Do not share this medicine with anyone. Selling or giving away this medicine is dangerous and against the law. Store at room temperature between 20 and 25 degrees C (68 and 77 degrees F). Keep container tightly closed. Protect from light. This medicine may cause accidental overdose and if it is taken by other adults, children, or pets. Flush any unused medicine down the toilet to reduce the chance of harm. Do not use the medicine after the expiration date. What should I tell my health care provider before I take this medicine? They need to know if you have any of these conditions: brain tumor Crohn's disease, inflammatory bowel disease, or ulcerative colitis drink more than 3 alcohol containing drinks per day drug abuse or addiction head injury heart or circulation problems kidney disease or problems going to the bathroom liver disease lung disease, asthma, or breathing problems an unusual or allergic reaction to acetaminophen, oxycodone, other opioid analgesics, other medicines, foods, dyes, or preservatives or trying to get breast-feeding What should I watch for while using this medicine? Tell your doctor or health career law clerk if your pain does not go away, if it gets worse, or if you have new or a different type of pain. You may develop tolerance to the medicine. Tolerance means that you will need a higher dose of the medication for pain relief. Tolerance is normal and is expected if you take this medicine for a long time. Do not suddenly stop taking your medicine because you may develop a severe reaction. Your body becomes used to the medicine. This does NOT mean you are addicted. Addiction is a behavior related to getting and using a drug for a non-medical reason. If you have pain, you have a medical reason to take pain medicine. Your doctor will tell you how much medicine to take. If your doctor wants you to stop the medicine, the dose will be slowly lowered over time to avoid any side effects. You may get drowsy or dizzy. Do not drive, use machinery, or do anything that needs mental alertness until you know how this medicine affects you. Do not stand or sit up quickly, especially if you are an older patient. This reduces the risk of dizzy or fainting spells. Alcohol may interfere with the effect of this medicine. Avoid alcoholic drinks. There are different types of narcotic medicines (opiates) for pain. If you take more than one type at the same time, you may have more side effects. Give your health care provider a list of all medicines you use. Your doctor will tell you how much medicine to take. Do not take more medicine than directed. Call emergency for help if you have problems breathing. The medicine will cause constipation. Try to have a bowel movement at least every 2 to 3 days. If you do not have a bowel movement for 3 days, call your doctor or health career law clerk. Do not take Tylenol (acetaminophen) or medicines that have acetaminophen with this medicine. Too much acetaminophen can be very dangerous. Many nonprescription medicines contain acetaminophen. Always read the labels carefully to avoid taking more acetaminophen. You have been given the following additional information: Ovarian Cyst Smoking Cessation Ondansetron Oral disintegrating tablet Oxycodone Hydrochloride, Acetaminophen Oral tablet Rest. Do not work for three days. (Electronically signed by Aldo Garcia DO 02/23/2017 23:09)
--- NOTE | 2017-02-23 23:10 | ED MED RECONCILIATION SUMMARY ---
Patient: DONALD LANDON Medication Reconciliation Report [facility] VisitID: [id number] [address] [place] [address] 41y, F Registration Date/Time: 02/23/2017 Weight: 102.0 kg Height/Length: 62 in. BMI: 41.2 ALLERGIES: Erythromycin, Penicillin The patient's Home Medications are listed below: NONE. The source(s) of the original Home Medication information: patient The following Medications were given to the patient in the Emergency Department: IV NS IV Fluids bolus 0, then 1000 mL/hr, administered: 02/23/2017 12:26:00 PM Zofran [IVP] IVP 4 mg, administered: 02/23/2017 12:26:00 PM Dilaudid [IVP] IVP 0.5 mg, administered: 02/23/2017 12:24:00 PM The following Medications were prescribed to the patient: Zofran (orally disintegrating tablets) 4 mg: take 1 orally every 8 hours as needed for nausea and vomiting. Dispense five (5). No refill. Substitution is permissible. -- Aldo Garcia DO Oxycodone/APAP 5 mg/325 mg: take 1-2 tablets orally every 8 hours as needed for pain. Dispense ten (10). No refill. -- Aldo Garcia DO
--- NOTE | 2017-02-23 23:10 | ED MAR SUMMARY ---
..... Medication Administration Record [facility] [address] [place] [address] Patient: DONALD LANDON Visit ID: [id number] 41y, F Weight: 102.0 kg Height/Length: 62 in BMI: 41.2 ALLERGIES: Erythromycin, Penicillin Given 12:24 02/23/2017 Lacey Torres R.N. Medication Administered: DILAUDID [IVP] (HYDROMORPHONE HCL PF), Dose: 0.5 mg IVP over 30 second(s), Site: #1 right forearm. Medication Ordered: Dilaudid IV 0.5 mg (HIGH ALERT MEDICATION, NOW). Start 12:26 02/23/2017 Lacey Torres R.N., Stop 13:38 02/23/2017 Lacey Torres R.N. Medication Administered: IV NS (SALINE), Dose: IV Fluids over 1 hour(s), Rate: 1000 mL/hr, Dispensed: 1000 mL bag, Site: #1 right forearm. Medication Ordered: IV NS : initial bolus 1000 mL (1000 mL/hr), then 500 mL/hr for X2 (NOW). Given 12:26 02/23/2017 Lacey Torres R.N. Medication Administered: ZOFRAN [IVP] (ONDANSETRON HCL), Dose: 4 mg IVP over 2 minute(s), Site: #1 right forearm. Medication Ordered: Zofran IV 4 mg (NOW).
--- NOTE | 2017-02-23 23:10 | ED MED RECONCILIATION SUMMARY ---
Patient: DONALD LANDON Medication Reconciliation Report [facility] VisitID: [id number] [address] [place] [address] 41y, F Registration Date/Time: 02/23/2017 Weight: 102.0 kg Height/Length: 62 in. BMI: 41.2 ALLERGIES: Erythromycin, Penicillin The patient's Home Medications are listed below: NONE. The source(s) of the original Home Medication information: patient The following Medications were given to the patient in the Emergency Department: IV NS IV Fluids bolus 0, then 1000 mL/hr, administered: 02/23/2017 12:26:00 PM Zofran [IVP] IVP 4 mg, administered: 02/23/2017 12:26:00 PM Dilaudid [IVP] IVP 0.5 mg, administered: 02/23/2017 12:24:00 PM The following Medications were prescribed to the patient: Zofran (orally disintegrating tablets) 4 mg: take 1 orally every 8 hours as needed for nausea and vomiting. Dispense five (5). No refill. Substitution is permissible. -- Aldo Garcia DO Oxycodone/APAP 5 mg/325 mg: take 1-2 tablets orally every 8 hours as needed for pain. Dispense ten (10). No refill. -- Aldo Garcia DO
--- NOTE | 2017-02-23 23:10 | ED DISCHARGE INSTRUCTIONS ---
Patient: DONALD LANDON General Instructions [facility] VisitID: [id number] [place] [address] 41y, F Registration Date/Time: 02/23/2017 Single simple left ovarian cyst. No torsion of ovary. Mild leukocytosis. No lymphocytosis. INSTRUCTIONS Rest. Do not work for three days. Drink plenty of fluids. No alcohol until released. Do not smoke. Seek medical help to quit smoking. Warnings: Further evaluation is necessary in order to recheck abnormal lab, obtain test results, conduct further tests and assess the possibility of serious illness. It is very important to follow up with a physician. SEDATIVE MEDICATION: You were given sedative medication during your visit. Do not drive or operate dangerous machinery. CONTROLLED SUBSTANCE WARNINGS. GENERAL WARNINGS: Return or contact your physician immediately if your condition worsens or changes unexpectedly, if not improving as expected, or if other problems arise. Prescription Medications: Zofran (orally disintegrating tablets) 4 mg: take 1 orally every 8 hours as needed for nausea and vomiting. Dispense five (5). No refill. Substitution is permissible. Oxycodone/APAP 5 mg/325 mg: take 1-2 tablets orally every 8 hours as needed for pain. Dispense ten (10). No refill. Follow-up: Follow up with your doctor tomorrow. Follow-up with: Johnathon Kingsley MD, Obstetrics/Gynecology, , [facility], [address] [place] [address] Follow up in about two days. ADDITIONAL INFORMATION Ovarian Cyst The ovary is a small organ located on each side of the uterus. During each menstrual cycle a tiny egg sac forms in the ovary. If the egg is released but does not occur, this sac usually dissolves. Sometimes, the sac may fill with fluid. It then enlarges into a painful cyst. Usually the cyst will rupture or shrink on its own. In either case, the pain gradually goes away over the next 1-3 days. If the cyst does not shrink or rupture, it may cause continued pain. Home Care: Rest in bed and avoid heavy exertion until you are feeling better. Heat to the lower abdomen usually helps (heating pad or hot packs -- a small towel soaked in hot water). You may use acetaminophen (Tylenol) or ibuprofen (Motrin, Advil) to control pain, unless another pain medicine was prescribed. [NOTE: If you have chronic liver or kidney disease or ever had a stomach ulcer or GI bleeding, talk with your doctor before using these medicines.] Follow Up: See your doctor within the next 2-3 days if your pain doesnt improve. Otherwise, follow up with your doctor after your next period or as directed by our staff. Get Prompt Medical Attention if any of the following occur: Pain worsens or fails to respond to the above measures Fever of 100.4F (38C) or higher, or as directed by your healthcare provider Heavy vaginal bleeding (soaking one pad an hour for three hours) You feel weak or dizzy Fainting Passage of a pink or tavera tissue with menstrual bleeding How To Quit Smoking Smoking is one of the hardest habits to break. About half of all those who have ever smoked have been able to quit, and most of those (about 70%) who still smoke want to quit. Here are some of the best ways to stop smoking. Keep Trying: It takes most smokers about 8 tries before they are finally able to fully quit. So, the more often you try and fail, the better your chance of quitting the next time! So, don't give up! Go Cold [place]: Most ex-smokers quit cold turkey. Trying to cut back gradually doesn't seem to work as well, perhaps because it continues the smoking habit. Also, it is possible to fool yourself by inhaling more while smoking fewer cigarettes. This results in the same amount of nicotine in your body! Get Support: Support programs can make an important difference, especially for the heavy smoker. These groups offer lectures, methods to change your behavior and peer support. Call the free national Quitline for more information. 362-BMAF-ALD (370-540-0886). Low-cost or free programs are offered by many hospitals, local chapters of the [place] [employer] (531-893-3890) and the [place] [employer] (957-164-7182). Support at home is important too. Non-smokers can help by offering praise and encouragement. If the smoker fails to quit, encourage them to try again! [id number] Medicines: For those who can't quit on their own, Nicotine Replacement Therapy (NRT) may make quitting much easier. Certain aids such as the nicotine patch, gum and lozenge are available without a prescription. However, it is best to use these under the guidance of your doctor. The skin patch provides a steady supply of nicotine to the body. Nicotine gum and lozenge gives temporary bursts of low levels of nicotine. Both methods take the edge off the craving for cigarettes. WARNING: If you feel symptoms of nicotine overdose, such as nausea, vomiting, dizziness, weakness, or fast heartbeat, stop using these and see your doctor. Prescription Medicines: After evaluating your smoking patterns and prior attempts at quitting, your doctor may offer a prescription medicine such as bupropion (Zyban, Wellbutrin), varenicline (Chantix, Champix), a niocotine inhaler or nasal spray. Each has its unique advantage and side effects which your doctor can review with you. Health Benefits Of Quitting: The benefits of quitting start right away and keep improving the longer you go without smokin minutes: blood pressure and pulse return to normal 8 hours: oxygen levels return to normal 2 days: ability to smell and taste begins to improve as damaged nerves start to regrow 2-3 weeks: circulation and lung function improves 1-9 months: decreased cough, congestion and shortness of breath; less tired 1 year: risk of heart attack decreases by half 5 years: risk of lung cancer decreases by half; risk of stroke becomes the same as a non-smoker For information about how to quit smoking, visit the following links: National Cancer [place] , Clearing the Air, Quit Smoking Today - an online booklet. http://www.smokefree.gov/pubs/clearing_the_air.pdf Smokefree.gov http://smokefree.gov/ QuitNet http://www.quitnet.com/ Ondansetron Oral disintegrating tablet What is this medicine? ONDANSETRON (on RICH se elvis) is used to treat nausea and vomiting caused by chemotherapy. It is also used to prevent or treat nausea and vomiting after surgery. How should I use this medicine? These tablets are made to dissolve in the mouth. Do not try to push the tablet through the foil backing. With dry hands, peel away the foil backing and gently remove the tablet. Place the tablet in the mouth and allow it to dissolve, then swallow. While you may take these tablets with water, it is not necessary to do so. Talk to your public accountant regarding the use of this medicine in children. Special care may be needed. What side effects may I notice from receiving this medicine? Side effects that you should report to your doctor or health body care manager as soon as possible: allergic reactions like skin rash, itching or hives, swelling of the face, lips, or tongue breathing problems dizziness fast or irregular heartbeat feeling faint or lightheaded, falls fever and chills swelling of the hands and feet tightness in the chest Side effects that usually do not require medical attention (report to your doctor or health body care manager if they continue or are bothersome): constipation or diarrhea headache What may interact with this medicine? Do not take this medicine with any of the following medications: -apomorphine -cisapride -dofetilide -dronedarone -pimozide -thioridazine -ziprasidone This medicine may also interact with the following medications: -carbamazepine -phenytoin -rifampicin -tramadol -other medicines that prolong the QT interval (cause an abnormal heart rhythm) What if I miss a dose? If you miss a dose, take it as soon as you can. If it is almost time for your next dose, take only that dose. Do not take double or extra doses. Where should I keep my medicine? Keep out of the reach of children. Store between 2 and 30 degrees C (36 and 86 degrees F). Throw away any unused medicine after the expiration date. What should I tell my health care provider before I take this medicine? They need to know if you have any of these conditions: heart disease history of irregular heartbeat liver disease low levels of magnesium or potassium in the blood an unusual or allergic reaction to ondansetron, granisetron, other medicines, foods, dyes, or preservatives or trying to get breast-feeding What should I watch for while using this medicine? Check with your doctor or health body care manager as soon as you can if you have any sign of an allergic reaction. Oxycodone Hydrochloride, Acetaminophen Oral tablet What is this medicine? ACETAMINOPHEN; OXYCODONE (a set a CLYDE raj fen; ox i KOE done) is a pain reliever. It is used to treat mild to moderate pain. How should I use this medicine? Take this medicine by mouth with a full glass of water. Follow the directions on the prescription label. Take your medicine at regular intervals. Do not take your medicine more often than directed. Talk to your public accountant regarding the use of this medicine in children. Special care may be needed. Patients over 65 years old may have a stronger reaction and need a smaller dose. What side effects may I notice from receiving this medicine? Side effects that you should report to your doctor or health body care manager as soon as possible: allergic reactions like skin rash, itching or hives, swelling of the face, lips, or tongue breathing difficulties, wheezing confusion light headedness or fainting spells severe stomach pain yellowing of the skin or the whites of the eyes Side effects that usually do not require medical attention (report to your doctor or health body care manager if they continue or are bothersome): dizziness drowsiness nausea vomiting What may interact with this medicine? alcohol antihistamines barbiturates like amobarbital, butalbital, butabarbital, methohexital, pentobarbital, phenobarbital, thiopental, and secobarbital benztropine drugs for bladder problems like solifenacin, trospium, oxybutynin, tolterodine, hyoscyamine, and methscopolamine drugs for breathing problems like ipratropium and tiotropium drugs for certain stomach or intestine problems like propantheline, homatropine methylbromide, glycopyrrolate, atropine, belladonna, and dicyclomine general anesthetics like etomidate, ketamine, nitrous oxide, propofol, desflurane, enflurane, halothane, isoflurane, and sevoflurane medicines for depression, anxiety, or psychotic disturbances medicines for sleep muscle relaxants naltrexone narcotic medicines (opiates) for pain phenothiazines like perphenazine, thioridazine, chlorpromazine, mesoridazine, fluphenazine, prochlorperazine, promazine, and trifluoperazine scopolamine tramadol trihexyphenidyl What if I miss a dose? If you miss a dose, take it as soon as you can. If it is almost time for your next dose, take only that dose. Do not take double or extra doses. Where should I keep my medicine? Keep out of the reach of children. This medicine can be abused. Keep your medicine in a safe place to protect it from theft. Do not share this medicine with anyone. Selling or giving away this medicine is dangerous and against the law. Store at room temperature between 20 and 25 degrees C (68 and 77 degrees F). Keep container tightly closed. Protect from light. This medicine may cause accidental overdose and if it is taken by other adults, children, or pets. Flush any unused medicine down the toilet to reduce the chance of harm. Do not use the medicine after the expiration date. What should I tell my health care provider before I take this medicine? They need to know if you have any of these conditions: brain tumor Crohn's disease, inflammatory bowel disease, or ulcerative colitis drink more than 3 alcohol containing drinks per day drug abuse or addiction head injury heart or circulation problems kidney disease or problems going to the bathroom liver disease lung disease, asthma, or breathing problems an unusual or allergic reaction to acetaminophen, oxycodone, other opioid analgesics, other medicines, foods, dyes, or preservatives or trying to get breast-feeding What should I watch for while using this medicine? Tell your doctor or health body care manager if your pain does not go away, if it gets worse, or if you have new or a different type of pain. You may develop tolerance to the medicine. Tolerance means that you will need a higher dose of the medication for pain relief. Tolerance is normal and is expected if you take this medicine for a long time. Do not suddenly stop taking your medicine because you may develop a severe reaction. Your body becomes used to the medicine. This does NOT mean you are addicted. Addiction is a behavior related to getting and using a drug for a non-medical reason. If you have pain, you have a medical reason to take pain medicine. Your doctor will tell you how much medicine to take. If your doctor wants you to stop the medicine, the dose will be slowly lowered over time to avoid any side effects. You may get drowsy or dizzy. Do not drive, use machinery, or do anything that needs mental alertness until you know how this medicine affects you. Do not stand or sit up quickly, especially if you are an older patient. This reduces the risk of dizzy or fainting spells. Alcohol may interfere with the effect of this medicine. Avoid alcoholic drinks. There are different types of narcotic medicines (opiates) for pain. If you take more than one type at the same time, you may have more side effects. Give your health care provider a list of all medicines you use. Your doctor will tell you how much medicine to take. Do not take more medicine than directed. Call emergency for help if you have problems breathing. The medicine will cause constipation. Try to have a bowel movement at least every 2 to 3 days. If you do not have a bowel movement for 3 days, call your doctor or health body care manager. Do not take Tylenol (acetaminophen) or medicines that have acetaminophen with this medicine. Too much acetaminophen can be very dangerous. Many nonprescription medicines contain acetaminophen. Always read the labels carefully to avoid taking more acetaminophen. You have been given the following additional information: Ovarian Cyst Smoking Cessation Ondansetron Oral disintegrating tablet Oxycodone Hydrochloride, Acetaminophen Oral tablet Rest. Do not work for three days. (Electronically signed by Aldo Garcia DO 02/23/2017 23:09)
--- NOTE | 2017-02-23 23:10 | ED MAR SUMMARY ---
..... Medication Administration Record [facility] [address] [place] [address] Patient: DONALD LANDON Visit ID: [id number] 41y, F Weight: 102.0 kg Height/Length: 62 in BMI: 41.2 ALLERGIES: Erythromycin, Penicillin Given 12:24 02/23/2017 Lacey Torres R.N. Medication Administered: DILAUDID [IVP] (HYDROMORPHONE HCL PF), Dose: 0.5 mg IVP over 30 second(s), Site: #1 right forearm. Medication Ordered: Dilaudid IV 0.5 mg (HIGH ALERT MEDICATION, NOW). Start 12:26 02/23/2017 Lacey Torres R.N., Stop 13:38 02/23/2017 Lacey Torres R.N. Medication Administered: IV NS (SALINE), Dose: IV Fluids over 1 hour(s), Rate: 1000 mL/hr, Dispensed: 1000 mL bag, Site: #1 right forearm. Medication Ordered: IV NS : initial bolus 1000 mL (1000 mL/hr), then 500 mL/hr for X2 (NOW). Given 12:26 02/23/2017 Lacey Torres R.N. Medication Administered: ZOFRAN [IVP] (ONDANSETRON HCL), Dose: 4 mg IVP over 2 minute(s), Site: #1 right forearm. Medication Ordered: Zofran IV 4 mg (NOW).
== END 2017-02-23 14:05 | disposition home or self-care (01) ==
LOC: ED SRH 11:35
DX: N83.292 Other ovarian cyst, left side (principal); D72.829 Elevated white blood cell count, unspecified; I10 Essential (primary) hypertension; F17.219 Nicotine dependence, cigarettes, with unspecified nicotine-induced disorders; Z88.0 Allergy status to penicillin; Z88.1 Allergy status to other antibiotic agents
CPT/HCPCS: 90004; 90100; 92235; 92530; 94060; 95059